=== PATIENT | female | born 1960 | race Caucasian/White ===

== ENCOUNTER 2019-01-11 17:06 | Outpatient (REF) | payer BC, SELFPAY ==
--- NOTE | 2019-01-11 15:30 | PAPFT_PTH ---
PATIENT: Lisandra Duarte LOC: [facility] U#:[id number] AGE/SX: 58/F ROOM: RE01/11/[address]: Marta Mallory MD, DC : 1960 BED: DIS: 01/11/2019 SPEC #: [id number] RECD: 01/11/19 18:22 STATUS: LUCÍA MOSS #: [id number] ANGELO: 01/11/19 15:[address]: Marta Mallory DEPT: [facility], [facility] Cytology RECD BY: Nishi Foote Tissues: 1 - CX/ENDOCX FOR PAP SMEARS Procedures: PAP THIN PREP/UVM Screening HPV DNA PROBE Comments: [id number]
== END 2019-01-11 17:26 ==
LOC: LBN 17:06
PROVIDERS: Visit Provider Family Medicine
DX: Z12.4 Encounter for screening for malignant neoplasm of cervix (principal); Z11.51 Encounter for screening for human papillomavirus (HPV)
CPT/HCPCS: 88142; 87624

== ENCOUNTER 2019-07-19 15:50 | Outpatient (REF) | payer BC, SELFPAY ==
--- NOTE | 2019-07-19 15:24 | SKI_PTH ---
PATIENT: Lisandra Duarte LOC: [facility] U#:[id number] AGE/SX: 58/F ROOM: RE07/19/[address]: Mikhail Degroot DO : 1960 BED: DIS: 07/19/2019 SPEC #: [id number] RECD: 07/19/19 17:58 STATUS: LUCÍA REQ #: [id number] ANGELO: 07/19/19 15:[address]: Mikhail Degroot DEPT: Surgical Specimen RECD BY: Nishi Foote ENTERED: 07/19/19 17:59 SP TYPE: ITZEL NAILS DR: Marta Mallory MD, DC Tissues: 1 - SKIN BIOPSY(SHAVE/PUNCH) Procedures: SKIN LEVEL 4 Comments: [id number]
== END 2019-07-19 16:10 ==
LOC: LBN 15:50
PROVIDERS: PCP Family Medicine; Visit Provider Otolaryngology Otolaryngology/Facial Plastic Surgery
DX: L57.0 Actinic keratosis (principal)
CPT/HCPCS: 88305

== ENCOUNTER 2019-11-01 00:09 | Outpatient (CLI) | payer BC, SELFPAY ==
--- NOTE | 2019-11-01 11:06 | DI.RAD_ITS ---
EXAM: XR CERVICAL SPINE COMP 4-5V INDICATION: neck pain M54.2 CERVICALGIA. COMPARISON: No exams were available for comparison TECHNIQUE: 2D digital imaging was performed. FINDINGS: There is narrowing and spurring at the anterior arch of C1 with the dens. Facet joint degenerative c hanges are seen throughout. There is moderate narrowing of the C 5 6 disc space and small endplate o steophytes. There is some straightening of the normal cervical lordosis secondary to degenerative ch anges. There is no prevertebral soft tissue swelling. There is mild neural foraminal narrowing on t he left at C5-6. IMPRESSION: Degenerative changes greatest at C5-6 with mild left neural foraminal narrowing.
== END 2019-11-01 00:29 ==
PROVIDERS: PCP Family Medicine; Visit Provider Family Medicine
DX: M54.2 Cervicalgia (principal); M47.812 Spondylosis without myelopathy or radiculopathy, cervical region; M50.322 Other cervical disc degeneration at C5-C6 level
CPT/HCPCS: 72050

== ENCOUNTER 2019-11-01 00:14 | Outpatient (CLI) | payer BC, SELFPAY ==
[2019-11-01 12:52] LABS: TSH (W/Ref FT4) 0.02 uIU/mL (0.36-3.74)
[2019-11-01 13:23] LABS: FREE T4 1.46 ng/dL (0.76-1.46)
== END 2019-11-01 00:34 ==
PROVIDERS: PCP Family Medicine; Visit Provider Family Medicine
DX: E03.9 Hypothyroidism, unspecified (principal)
CPT/HCPCS: 36415; 84439; 84443

== ENCOUNTER 2019-12-03 07:52 | Day surgery (SDC) | payer BC, SELFPAY ==
[2019-12-03 08:18] VITALS: BP 111/77; PULSE 80; RESP 18; TEMP 36.6; O2SAT 100
[2019-12-03] MEDS: Lactated Ringers 1,000 ML 80 ML IV (08:35)
--- NOTE | 2019-12-03 09:23 | W.PM.DSUDISC ---
Discharge Plan Disposition Patient Disposition: HOME Condition: Good Discharge Details Reason For Visit: Colonoscopy Attending Provider: Karine Christensen Primary Care Provider: Marta Mallory Home Meds and New Rx's Prescriptions: Continued levothyroxine 100 mcg tablet 100 mcg PO DAILY Qty: 90 RF: 12 ibuprofen 200 MG capsule 600 mg PO Q6H PRN RF: 0 levothyroxine 88 mcg tablet 88 mcg PO DAILY Qty: 90 RF: 4 Discontinued bisacodyl [Dulcolax (bisacodyl)] 5 mg tablet,delayed release (DR/EC) 5 mg PO ONCE Qty: 4 RF: 0 polyethylene glycol 3350 17 gram powder in packet 255 g PO DAILY Qty: 15 RF: 0 Discharge Instructions Additional Instructions: Findings: Your colonoscopy was normal. Follow up: Plan for a screening colonoscopy in 10 years or sooner if symptoms indicate. Please call if you develop: fevers >101.5 Nausea or Vomiting Abdominal pain that is not transient DAY SURGERY UNIT POST COLONOSCOPY INSTRUCTIONS 1. Because there will be medication in your system for the next 24 hours, you may feel a little sleepy. Your coordination will be affected. Therefore: a. Do not drive or operate dangerous equipment for 24 hours. b. Do not drink alcohol beverages for 24 hours (not even beer). c. Plan to go home and rest for the day. 2. Generally there are no restrictions on your activity after a day or so has gone by, but you may feel a bit fatigued for a few days. 3 After you arrive home you may have a light meal and return to a normal diet as you can tolerate it without feeling sick to your stomach. 4. After surgery, you may feel pain or discomfort. This should be only transient, but if it persists please contact your doctor. 5. If there are any questions regarding the findings of your procedure, please feel free to contact your doctor. 6. If you are unable to contact your doctor with a problem, contact the hospital at [phone]. 7. Continue all your regular medications unless directed otherwise. I understand the above instructions and have no questions. Signature of Patient or Responsible Adult Escort Date/Time Name of Responsible Adult Escort Signature of Nurse Date/Time Activity:: Activity as Tolerated Diet:: As Tolerated Discharge Orders Discharge Orders: Discharge Order (Routine); Ordered 12/03/19 Ordered By: Karine Christensen DS: Diagnosis Discharge Diagnosis (1) Normal colonoscopy: Status: Acute
--- NOTE | 2019-12-03 10:30 | COLE_ITS ---
DATE OF PROCEDURE: December 03, 2019 PREOPERATIVE DIAGNOSIS: Screening. POSTOPERATIVE DIAGNOSIS: Normal colon. PROCEDURE: Colonoscopy. SURGEON: Karine Christensen M.D. ANESTHESIA: General. INDICATIONS: This is a 58-year-old woman who presents for her first screening colonoscopy. She is a symptomatic and has no family history of colon cancer. She did have a few days recently with some br ight red bleeding, consistent with internal hemorrhoids. PROCEDURE: She was placed in the left Patino position. Propofol was titrated to sedation. Digital r ectal examination revealed no significant abnormalities. The scope was advanced to the cecum without difficulty. The ileocecal valve and appendiceal orifice were clearly identified. Her prep was exce llent. The scope was slowly withdrawn with no abnormalities seen within the ascending, transverse, d escending, sigmoid colon or rectum, including on retroflex view. She tolerated the procedure well an d was stable to recovery. She will need a screening colonoscopy again in ten years or sooner if symptoms indicate. cc: Marta Mallory M.D.
[2019-12-03 10:40] VITALS: BP 104/66; PULSE 63; RESP 16; TEMP 36.7; O2SAT 99
== END 2019-12-03 11:25 | disposition home or self-care (01) ==
PROVIDERS: PCP Family Medicine; Visit Provider Surgery
PROC: 0DJD8ZZ Inspection of Lower Intestinal Tract, Via Natural or Artificial Opening Endoscopic (ICD-10-PCS; CPT 45378; principal; 2019-12-03 08:15)
DX: Z12.11 Encounter for screening for malignant neoplasm of colon (principal); K62.5 Hemorrhage of anus and rectum
CPT/HCPCS: 45378; J2704

== ENCOUNTER 2020-01-05 01:19 | Outpatient (CLI) | payer BC, SELFPAY ==
--- NOTE | 2020-01-05 16:15 | DI.MAMMO_ITS ---
EXAM: MG MAMMO SCREENING CLINICAL HISTORY: screening Z12.39. TECHNIQUE: Bilateral full field digital CC and MLO mammographic images were obtained with 3D tomosyn thesis and utilizing computer aided detection (CAD). COMPARISON: Available for comparison. FINDINGS: Masses/Architectural Distortion: There is an ovoid density in the upper central right breast seen on the mediolateral oblique view. There is an ovoid density seen in the inferior left breast on the med iolateral oblique view. Microcalcifications: No suspicious pleomorphic-type are seen. Skin Thickening/Nipple Retraction: None. IMPRESSION: 1. Ovoid density seen in the upper central right breast and inferior left breast. 2. These area should be further evaluated with spot compression views. Ultrasound may be indicated a t that time. BI-RADS Cat 0 - Assessment Incomplete: Need additional imaging evaluation Breast Density - Category C - Heterogeneously dense The mammogram demonstrates the patient's breast tissue is dense. Dense breast tissue is very common a nd is not abnormal but dense breast tissue can make it harder to find cancer on a mammogram. Also, de nse breast tissue may increase their breast cancer risk. This information about the result of the [facility] mogram report was provided to the patient to raise their awareness. Use this report when you speak wi th the patient about their risks for breast cancer, which includes their family history. At that time , you may recommend for more screening tests (Ultrasound or MRI) as they might be useful based on the ir risk. A negative radiographic report should not delay biopsy if a dominant or clinically suspicious mass is present. Up to ten percent of cancers are not identified on mammography. A negative report may reinforce clinical impression. Adenosis and dense breasts may obscure an underlying neoplasm. False positive reports average 6 to 10%. Patient will receive a letter notifying them of these results.
== END 2020-01-05 01:39 ==
PROVIDERS: PCP Family Medicine; Visit Provider Family Medicine
DX: Z12.31 Encounter for screening mammogram for malignant neoplasm of breast (principal); R92.8 Other abnormal and inconclusive findings on diagnostic imaging of breast
CPT/HCPCS: 77063; 77067

== ENCOUNTER 2020-01-11 02:07 | Outpatient (CLI) | payer BC, SELFPAY ==
--- NOTE | 2020-01-11 | DI.MAMMO_ITS ---
EXAM: MG MAMMO SCREEN CALL BACK ALIRIO BILATERAL BREAST ULTRASOUND CLINICAL HISTORY: OVOID DENSITY IN UPPER CENTRAL RT BREAST AND INFERIOR LT BREAST, F/U MAMMO TECHNIQUE: Craniocaudal and mediolateral oblique Full Field Digital Mammography views of the bilater al breast with Computer Aided Diagnosis followed by Tomosynthesis and bilateral breast ultrasound. COMPARISON: Available for comparison FINDINGS: Mammography/Tomosynthesis: Masses/Architectural Distortion: None seen. Microcalcifictions: No suspicious pleomorphic-type are seen. Skin Thickening/Nipple Retraction: None. Bilateral breast US: Echotexture: Normal appearance of the glandular tissue. Shadowing: No suspicious foci. Cyst: Bilateral simple cysts are present. Solid lesions: None seen. Ductal dilation: Mild ductal dilatation in the left breast. IMPRESSION: 1. No evidence of malignancy is noted. 2. A six-month follow-up right mammogram is recommended for further evaluation. 3. Yearly mammography of the left breast is recommended. BI-RADS Cat 3 - 6 month - Probably Benign Finding: Recommend follow-up mammography in 6 months Breast Density - Category C - Heterogeneously dense Findings were discussed with the patient on the date of the examination. The mammogram demonstrates the patient's breast tissue is dense. Dense breast tissue is very common a nd is not abnormal but dense breast tissue can make it harder to find cancer on a mammogram. Also, de nse breast tissue may increase their breast cancer risk. This information about the result of the [facility] mogram report was provided to the patient to raise their awareness. Use this report when you speak wi th the patient about their risks for breast cancer, which includes their family history. At that time , you may recommend for more screening tests (Ultrasound or MRI) as they might be useful based on the ir risk. A negative radiographic report should not delay biopsy if a dominant or clinically suspicious mass is present. Up to ten percent of cancers are not identified on mammography. A negative report may reinforce clinical impression. Adenosis and dense breasts may obscure an underlying neoplasm. False positive reports average 6 to 10%. Patient will receive a letter notifying them of these results.
== END 2020-01-11 02:27 ==
PROVIDERS: PCP Family Medicine; Visit Provider Family Medicine
DX: Z12.31 Encounter for screening mammogram for malignant neoplasm of breast (principal); R92.8 Other abnormal and inconclusive findings on diagnostic imaging of breast; N60.01 Solitary cyst of right breast; N60.02 Solitary cyst of left breast; N60.42 Mammary duct ectasia of left breast
CPT/HCPCS: 76642; 77063; 77067

== ENCOUNTER 2020-02-01 15:34 | Outpatient (REF) | payer BC, SELFPAY ==
--- NOTE | 2020-02-01 14:00 | PAPFT_PTH ---
PATIENT: Lisandra Duarte LOC: [facility] U#:[id number] AGE/SX: 59/F ROOM: RE02/01/[address]: Marta Mallory MD, DC : 1960 BED: DIS: 02/01/2020 SPEC #: [id number] RECD: 02/02/20 12:55 STATUS: LUCÍA REGerson #: [id number] ANGELO: 02/01/20 14:[address]: Marta Mallory DEPT: [facility] Cytology RECD BY: Nishi Foote Tissues: 1 - CX/ENDOCX FOR PAP SMEARS Procedures: PAP THIN PREP/UVM Screening HPV DNA PROBE Comments: [id number]
== END 2020-02-01 15:54 ==
LOC: LBN 15:34
PROVIDERS: PCP Family Medicine; Visit Provider Family Medicine
DX: Z12.4 Encounter for screening for malignant neoplasm of cervix (principal); Z11.51 Encounter for screening for human papillomavirus (HPV)
CPT/HCPCS: 88142; 87624

== ENCOUNTER 2020-07-07 16:47 | Emergency (ER) | payer BC, SELFPAY ==
[2020-07-07] VITALS (16 sets, daily range): BP systolic 121–149; BP diastolic 65–80; PULSE 60–90; RESP 12–23; TEMP 36.8; O2SAT 97–100
--- NOTE | 2020-07-07 16:45 | RT.EKG_ITS ---
APPROVED REPORT Exam: Resting ECG Patient Location: E HR:74 bpm ECG Measurements Heart Rate 74 AXIS [place] 150 P 76 QRSd 98 QRS 54 QT 406 T 39 QTc 449 Conclusion Sinus rhythm...normal P axis, V-rate 60- 99 Probable left atrial enlargement...P >50mS, <-0.10mV V1
--- NOTE | 2020-07-07 16:48 | W.ED.GENAD ---
Discharge Plan Disposition Patient Disposition: HOME Condition: Stable Discharge Details Chief Complaint: Chest Pain Clinical Impression: Atypical chest pain, Hypokalemia, Elevated serum free T4 level, Palpitations Primary Care Provider: Marta Mallory ED Provider: Tanya Saez Home Meds and New Rx's Prescriptions: Continued levothyroxine 88 mcg tablet 88 mcg PO DAILY Qty: 90 RF: 12 ibuprofen 200 MG capsule 600 mg PO Q6H PRN RF: 0 Discharge Instructions Instructions: Chest Pain (ED), Hypokalemia (ED) Additional Instructions: Encourage water intake. Please increase the potassium in your diet. We will be in touch with you regarding Holter monitor. If you develop fever/chills, increased pain, difficulty breathing, nausea vomiting or other new/worsening symptoms please seek care urgently once again. Please call primary care on Friday to discuss your thyroid regimen. Please follow-up with your primary care in the next week for reevaluation. Referrals: Marta Mallory MD, [place] [Primary Care Provider] - Discharge Data Discharge Date/Time-TO BE ENTERED AT DEPARTURE: 07/07/20 19:40 Medical Decision Making Patient is a pleasant 59-year-old female presents today with chief complaint of 2 weeks of intermittent chest pressure. She reports the pain began as stabbing worsening pain. Pain always was at times of rest such as when she is watching TV or when she is lying in bed. She does report stress with illness in the past. No shortness of breath associated with this she reports that however recent days, continues to be a at rest that she has symptoms completely has not been stabbing of a discomfort and is been no more change of the breast reported this to present very short lived. States that she can have fluttering which now may not correlate with the discomfort. She denies any fevers or chills. No cough. Did recently go to [place] to take her dog to a emergency vet but does not believe that she was out in the community enough to have been exposed to COVID-19. She denies any personal history of heart disease. Associated with asthma is significantly low a year hypothyroidism. She does report that recently her primary care has been making adjustments to her Synthroid dosing. On exam, patient is resting comfortably. She appears to be in no acute distress with vital signs are stable. Lungs are clear, normal cardiac exam. No chest pain or palpitation. No lower extremity edema or calf tenderness. 2+ distal pulses in all extremities. EKG was obtained and reviewed by Dr. Shay. Patient is in sinus rhythm with no acute ischemic changes noted. At this point, differentials are fairly broad. However, history is not clearly consistent with ACS as there is no exertional component to her discomfort. She denies worsening shortness of breath. She does report that she is been more sedentary than typically. Pulmonary embolism is on the differential, I do find this less likely. She is not tachycardic or hypoxic. Exam and history is not consistent with dissection or AAA. Infectious etiology is in the differential, this seems to be to intermittent without evidence of fevers or chills to be very high in the differential. However, with this in mind I do feel that further evaluation is appropriate FINDINGS: Lungs: Unremarkable. No consolidation. Pleural space: Unremarkable. No pleural effusion. No pneumothorax. Heart/Mediastinum: Unremarkable. No cardiomegaly. Bones/joints: Unremarkable. IMPRESSION: No acute findings. Labs reviewed. No leukocytosis. Stable H&H. Potassium is 3.1 and will replenish this. Her d-dimer is within normal range at 291. Patient's TSH is less than 0.01. Free T4 is 1.5. Discussed these findings with the patient. As the symptoms have been going on for the past week and she is not currently endorsing any chest discomfort, I do not feel that repeat troponin is warranted at this point. However, as she has been having some palpitations, I do feel that it would be appropriate to place her on a Holter monitor. I will see if respiratory therapy is able to do so given the time of day. I did encourage close follow-up with primary care. I did encourage anxiety lytic techniques. She was given strict return precautions. All of her questions and concerns were addressed and she is agreement this plan. Just after discharge was completed, respiratory did come and was able to place a Holter monitor in the department. HPI General Mode of arrival: ambulatory. Date/Time Provider Initiated Documentation: 07/07/20 16:48. Limitations to Documentation: no limitations. Information obtained by: patient and RN notes reviewed. History of Present Illness 59 year old F presents to the emergency department with the chief complaint of chest pressure, described as moderate, with intensity rated at 4. Quality is described as aching, and is localized to the chest. Patient reports no radiation. Patient started experiencing this week(s) (2) and it has been intermittent. No relieving factors improve symptom(s), (does not notice when active) Immoblization worsens symptoms (notices it when laying down, at rest watching TV...) . Patient notes chest pain; denies cough, diaphoresis, fever/chills, loss of appetite, nausea/vomiting, rash, shortness of breath and syncope. Patient did receive the following treatments prior to arrival, none Related Data Home Medications Medication Instructions Recorded Confirmed ibuprofen 600 mg PO Q6H PRN tab-cap 05/30/15 07/07/20 levothyroxine 88 mcg tablet 88 mcg PO DAILY #90 tab-cap 02/01/20 07/07/20 Previous Rx's Medication Instructions Recorded levothyroxine 88 mcg tablet 88 mcg PO DAILY #90 tab-cap 02/01/20 Allergies Allergy/AdvReac Type Severity Reaction Status Date / Time methimazole Allergy Mild Hives Unverified 02/01/20 13:28 caffeine AdvReac Intermediate Tachycardia Unverified 02/01/20 13:28 [From Excedrin Migraine] Review of Systems Constitutional Constitutional: Reports as per HPI, Denies chills, Denies fever(s), Denies headache(s), Denies lethargy and Denies poor appetite Eyes Eyes: Denies change in vision ENT Ears, Nose, Mouth, and Throat: Denies dizziness and Denies headache(s) Cardiovascular Cardiovascular: Reports as per HPI, Reports chest pain, Reports chest pain at rest, Denies chest pain with activity, Denies diaphoresis, Denies syncope, Denies edema, Denies claudication, Denies lightheadedness, Denies radiating jaw, neck or arm pain, Reports palpitations (feels pounding. Other times, feels fluttering. No always associated CP), Denies dyspnea and Denies dyspnea on exertion Respiratory Respiratory: Reports as per HPI, Denies chest congestion, Denies cough, Denies pain on inspiration, Denies pain with cough, Denies dyspnea, Denies dyspnea on exertion and Denies wheezing Gastrointestinal Gastrointestinal: Reports as per HPI, Denies abdominal pain, Denies diarrhea, Denies nausea and Denies vomiting Musculoskeletal Musculoskeletal: Reports as per HPI and Denies back pain Integumentary/Breasts Skin/Breast: Reports as per HPI and Denies rash Neurologic Neurologic: Reports as per HPI, Denies dizziness, Denies syncope and Denies headache(s) Endocrine Endocrine: Reports palpitations (feels pounding. Other times, feels fluttering. No always associated CP) Allergic/Immunologic Allergic/Immunologic: Denies wheezing [facility] Medical History (Updated 07/07/20 @ 18:56 by NAINA Greenberg) Abnormal glandular Papanicolaou smear of vagina (Resolved 10/23/94) conization; normal since DDD (degenerative disc disease), lumbar (Chronic 11/28/15) Graves' disease (Resolved 12/23/11) S/P thyroid ablation, now hypothyroid Hx of migraines (Chronic 12/25/15) Hypothyroidism (Chronic) Surgical History Appendectomy Back Surgery (~12/2015) herniated disc THYROID ABLATION Family History Mother Essential hypertension Hyperlipidemia Father Diabetes Essential hypertension Heart disease Hyperlipidemia Brother , 15 MVA (motor vehicle accident) Maternal Grandfather , age 30? Cancer Paternal Grandfather , age 70 Essential hypertension Heart disease Hyperlipidemia Maternal Grandmother , age 82 Essential hypertension Heart disease Hyperlipidemia Paternal Grandmother , age 98 No problems noted. Son No problems noted. Son No problems noted. Daughter No problems noted. Social History Smoking/Tobacco Use Status: Never Alcohol Intake: never Drug use: Never Substance use type: does not use Caregiver/Support person: No Housing: apartment Communication Needs: None Do you need help understanding health information?: Never Pets and animals: Yes Pets and animals: dog(s) Sexually active: No Do you think of yourself as: straight/heterosexual Current gender identity: female What is your relationship status?: How often do you talk on the phone with friends or family?: once per week How often do you get together with friends or relatives?: three or more times per week How often do you attend oriental orthodox or baptism services?: 4 or more times per year Do you belong to any clubs or organized social groups?: yes Panel score (0-1 are the most socially isolated patients): 3 What type of physical activity do you participate in: other Duration: 15-30 minutes/day Frequency: 1-2 times per week Valerie/Sikhism: [employer] Special valerie needs: No Seatbelt use: always Helmet use: Yes Helmet use: always Drive intox or ride w/[employer] truck driver: No Do you feel safe at home: Yes Do you feel safe in your relationship?: Yes Additional Social history: not in current relationship Exam Const General: cooperative, healthy appearing, comfortable, no acute distress and well developed Nutritional Appearance: average body habitus and well nourished Orientation: alert, awake and oriented x3 HENMT Head: normal to inspection Ears: hearing grossly normal bilaterally Mouth: moist mucous membranes Chest Chest: normal inspection of the chest, normal palpation of entire chest wall and no crepitus Resp Effort & Inspection: normal respiratory effort, able to speak in complete sentences and no respiratory distress Auscultation: clear to auscultation bilaterally, no rales, no rhonchi and no wheezes Cardio Rate: regular rate Rhythm: regular rhythm Heart Sounds: S1 normal and S2 normal GI Inspection: normal to inspection, no edema and non-distended Palpation: soft, no hepatosplenomegaly, not firm, no guarding, not rigid and nontender Auscultation: normal bowel sounds Back/Spine/Pelvis Back: no CVA tenderness Thoracic/Lumbar Spine: thoracic and lumbar spine normal to inspection Skin General skin exam: no rashes or lesions noted Trauma: no lacerations or abrasions Neuro General: patient alert, patient awake and patient oriented x3 Cognition: normal cognition Speech: speech normal Gait: normal gait Extrem General: normal to inspection, capillary refill normal, no pedal edema, no calf tenderness and normal gait Psych Appearance: grossly normal and well kempt Mental Status: mental status grossly normal Speech and Movement: speech and movement normal
--- NOTE | 2020-07-07 17:15 | DI.RAD_ITS ---
EXAM: XR PORTABLE CHEST AP CLINICAL HISTORY: CP TECHNIQUE: 2D digital imaging was performed. COMPARISON: No exams were available for comparison FINDINGS: LUNGS: Clear. No pleural abnormality seen. HEART: Normal. MEDIASTINUM: Normal. OTHER FINDINGS: None. IMPRESSION: No acute pulmonary findings. DATA REPOSITORY: RADIATION DOSE DELIVERED:
[2020-07-07 17:25] LABS: Abs Immature Grans 0.01 10^3/uL (0.0-0.06); Absolute Basophil Count 0.03 10^3/uL (0.0-0.2); Absolute Eosinophil Count 0.09 10^3/uL (0.0-0.7); Absolute Lymphocyte Count 1.63 10^3/uL (1.2-3.4); Absolute Neutrophil Count 3.66 10^3/uL (1.2-6.7); Basophils % 0.5; Eosinophils % 1.5; HCT 38.1 % (36.0-46.0); HGB 13.1 g/dL (11.2-15.7); Immature Grans % 0.2; MCH 30.7 pg (27.0-33.0); MCHC 34.4 % (32.0-36.0); MCV 89.2 fL (80-95); Monocytes % 6.9; Neutrophils % 62.9; Nucleated RBC 0 %; Platelet Count 221 10^3/uL (130-400); RBC 4.27 10^6/uL (3.93-5.22); RDW-SD 39.1 fL; WBC 5.82 10^3/uL (4.4-10.8)
[2020-07-07 17:59] LABS: ALT 29 U/L (14-59); AST 18 U/L (15-37); Alkaline Phosphatase 74 U/L (46-116); Anion Gap 9.2 mmol/L (3-11); BUN 14 mg/dL (7-18); Bilirubin, Total 0.5 mg/dL (0.2-1.0); CO2 27.8 mmol/L (21.0-32.0); CREATININE 0.69 mg/dL (0.55-1.02); Chloride 104 mmol/L (98-107); Glucose 107 mg/dL (74-106); Potassium 3.1 mmol/L (3.5-5.1); Sodium 141 mmol/L (136-145); Total Protein 7.3 g/dL (6.4-8.2)
[2020-07-07 18:00] LABS: TSH (W/Ref FT4) < 0.01 uIU/mL (0.36-3.74); Troponin I < 0.05 ng/mL (<0.06)
--- NOTE | 2020-07-07 18:04 | DI.VRAD_ITS ---
PROCEDURE INFORMATION: Exam: XR Chest, 1 View Exam date and time: 07/07/2020 5:53 PM Age: 59 years old Clinical indication: Chest pain TECHNIQUE: Imaging protocol: XR of the chest Views: 1 view. COMPARISON: No relevant prior studies available. FINDINGS: Lungs: Unremarkable. No consolidation. Pleural space: Unremarkable. No pleural effusion. No pneumothorax. Heart/Mediastinum: Unremarkable. No cardiomegaly. Bones/joints: Unremarkable. IMPRESSION: No acute findings. Dictated and Authenticated by: Shirley Jackson MD. Ordering:PRIYANKA Martínez MD
[2020-07-07 18:10] LABS: D-Dimer 291 ng/mlFEU (<500)
[2020-07-07] MEDS: POTASSIUM CHLORIDE 20 MEQ, POTASSIUM CHLORIDE 10 MEQ 30 MEQ PO (18:41)
== END 2020-07-07 19:40 | disposition home or self-care (01) ==
PROVIDERS: Emergency Provider Physician Assistant; PCP Family Medicine
DX: R07.89 Other chest pain (principal); E87.6 Hypokalemia; R00.2 Palpitations; R94.6 Abnormal results of thyroid function studies; E03.9 Hypothyroidism, unspecified
CPT/HCPCS: 36415; 80053; 93005; 99285; 71045; 83735; 84439; 84443; 84484; 85025; 85379; 93010; 93225

== ENCOUNTER 2020-07-11 01:06 | Outpatient (CLI) | payer BC, SELFPAY ==
--- NOTE | 2020-07-11 06:45 | DI.MAMMO_ITS ---
EXAM: MG MAMMO DIAGNOSTIC UNI CLINICAL HISTORY: 6 mo f/u, F/U ABNL MAMMO,R92.8 TECHNIQUE: Mammograms were interpreted according to the usual protocol including computer analysis w [employer] CAD system, tomosynthesis and C-view imaging. COMPARISON: 2010 through December 2019 FINDINGS: This is a six-month follow-up of the right breast. The right breast is composed of heterogeneously de nse fibroglandular densities, Breast Density category C. No suspicious masses or suspicious microcalcifications are seen. Scattered benign calcifications are noted. Vascular calcifications are also seen. No skin thickening or abnormal axillary lymph nodes are seen. There has been no significant change from prior exams. IMPRESSION: BI-RADS Cat 2 - Benign Findings Bilateral screening should be resumed in 6 months.. Breast Density Category C, heterogeneously dense tissue which decreases the sensitivity of the mammog petar. The mammogram demonstrates the patient's breast tissue is dense. Dense breast tissue is very common a nd is not abnormal but dense breast tissue can make it harder to find cancer on a mammogram. Also, de nse breast tissue may increase breast cancer risk. This information about the result of the mammogram report was provided to the patient to raise their awareness. Use this report when you speak with the patient about their risks for breast cancer, which includes their family history. At that time, you may recommend additional screening tests (Ultrasound or MRI) as they might be useful based on their r isk. A negative radiographic report should not delay biopsy if a dominant or clinically suspicious mass is present. Up to ten percent of cancers are not identified on mammography. A negative report may reinforce clinical impression. Adenosis and dense breasts may obscure an underlying neoplasm. False positive reports average 6 to 10%.
== END 2020-07-11 01:26 ==
PROVIDERS: PCP Family Medicine; Visit Provider Family Medicine
DX: R92.8 Other abnormal and inconclusive findings on diagnostic imaging of breast (principal); R92.2 Inconclusive mammogram; R92.1 Mammographic calcification found on diagnostic imaging of breast
CPT/HCPCS: 77061; 77065; G0279

== ENCOUNTER 2020-07-12 13:13 | Outpatient (CLI) | payer BC, SELFPAY ==
--- NOTE | 2020-07-13 08:40 | W.HOLTRPT ---
Date of service: 07/13/20 Time of Service: 08:40 Holter Monitor Report Referring Provider:: [place] Indications:: Palpitations Holter Monitor Note: 48-hour Holter monitor ordered for indication of palpitations. ?The patient was in normal sinus rhythm for majority recording with an average heart rate of 78 bpm. ?There was one episode of supraventricular tachycardia which lasted 7 total beats. This occurred at 3 AM and was asymptomatic. There were rare PACs. ?There were no episodes of ventricular tachycardia and 13 total single ventricular ectopic beats. ?There were no episodes of atrial fibrillation, no pauses in 3 seconds no evidence of high degree heart block. ?Patient triggered events were associated with sinus rhythm or a single PAC/PVC.
== END 2020-07-12 13:33 ==
PROVIDERS: PCP Family Medicine; Visit Provider Family Medicine
DX: R00.2 Palpitations (principal); I47.1 Supraventricular tachycardia; I49.3 Ventricular premature depolarization; I49.1 Atrial premature depolarization
CPT/HCPCS: 93226

== ENCOUNTER 2020-07-27 01:19 | Outpatient (CLI) | payer BC, SELFPAY ==
--- NOTE | 2020-07-27 08:00 | DI.US_ITS ---
APPROVED REPORT EXAM: Comprehensive 2D, Doppler, and color-flow Echocardiogram Patient Location: Out-Patient Office Support Clerk: An Mccloud RDCS (AE) Indications: Chest pain, palpitations, Dilated Atria Other Information Study Quality: Good Conclusion Normal left ventricular wall thickness and chamber size. Estimated ejection fraction is 65%. There are no segmental wall motion abnormalities Normal right ventricular size and function Normal left atrial size. Normal right atrial size. Structurally normal aortic valve without regurgitation or stenosis Structurally normal mitral valve. Trace mitral regurgitation Normal tricuspid valve, trace to mild tricuspid regurgitation, normal estimated right ventricular sys tolic pressure Normal pulmonic valve, trace physiologic regurgitation Wall motion Left Ventricle The left ventricle is normal size. The left ventricular systolic function is normal. The left ventric ular ejection fraction is within the normal range. There is normal left ventricular wall thickness. T here is normal LV segmental wall motion. There is no ventricular septal defect visualized. LVEF is 65 % Right Ventricle The right ventricle is normal size. The right ventricular systolic function is normal. Atria The left atrium size is normal. The right atrium size is normal. The interatrial septum is intact wit h no evidence for an atrial septal defect. Aortic Valve Aortic valve is trileaflet. There is no aortic valvular stenosis. No aortic regurgitation is present. Mitral Valve The mitral valve is normal in structure. No evidence of mitral valve stenosis. Trace mitral regurgita tion. Tricuspid Valve The tricuspid valve is normal in structure. There is no tricuspid valve stenosis. Trace to mild tricu spid regurgitation. Pulmonic Valve The pulmonary valve is normal in structure. There is no pulmonic valvular stenosis. Trace pulmonic re gurgitation. Great Vessels The aortic root is normal in size. The ascending aorta is normal in size. Aortic arch is normal in ca liber. IVC is normal in size and collapses >50% with inspiration. Pericardium There is no pericardial effusion. 2D Dimensions IVSD d PLAX 0.76 cm F: 0.6-1.0 LV Vol A2C d MOD 77.1 mL LVPW d PLAX 0.77 cm F: 0.6 - 1.0 LV Vol A4C d MOD 86.0 mL LVID d PLAX 4.91 cm F: 3.8 - 5.2 LA vol/ BSA A2C s A-L 18.7 mL/m2 LVDs 3.25 cm F: 2.2 - 3.5 LA vol/ BSA A4C s A-L 29.3 mL/m2 Ao Root d 2.54 cm F: 2.7 - 3.3 LA Vol/ BSA Biplane s A-L 24.6 mL/m2 RA Area A4C 15.04 cm2 LA Area A4C s MOD 17.28 cm2 RA Vol/ BSA A4C s A-L 24.4 mL/m2 LA Area A2C s MOD 13.15 cm2 Ao Asc Diam d 3.32 cm F: 2.3 - 3.1 LV EF A4C MOD 56.1 % LV EF Teichholz 62.0 % LV EF A2C MOD 59.7 % LVEF (Lai's) 56.38 % F: 54 - 74 LV EF Biplane MOD 56.4 % LV Volume 65.17 mL F: 46 - 106 SV 46.33 mL LV Volume Index 38.33 mL/m2 F: 29 - 61 SV Index 27.16 mL/m2 LV Vol Biplane MOD 82.2 mL FS 33.40 % M-Mode TAPSE 2.72 cm (M/F) >1.7 LV Diastology MV E' medial 0.108 (>0.07 m/s) E/A Ratio 0.9 LV E/e MED 6.45 (<14) MV E Vmax 0.69 (0.4-1.3 m/s) MV E' lateral 0.108 (>0.1 m/s) MV A Vmax 0.75 (0.4-1.3 m/s) LV E/e LAT 6.45 (<14) MV E/A Ratio 0.87 MV E/E' medial 6.45 MV E/E' lateral 6.45 Aortic Valve LVOT Area 2.77 cm2 AoV Area Vmax 2.30 cm2 LVOT Vmax 1.14 m/s AoV Area/ BSA (Vmax) 1.35 cm2/m2 LVOT Mean Zeke. 0.78 m/s SHELLEY Mean Zeke. 2.14 cm2 LVOT Peak Grad 5.2 mmHg SHELLEY Mean Zeke. Index 1.26 cm2/m2 LVOT Mean Grad 2.8 mmHg LVOT VTI 0.252 m LVOT Diam s 1.85 cm AoV Vmax 1.38 m/s Velocity Ratio 0.82 AoV Mean Zeke. 1.01 m/s AoV Peak Grad 7.6 mmHg LVOT SV 69.95 mL AoV Mean Grad 4.5 mmHg AoV VTI 0.267 m AoV Area VTI 2.62 cm2 AoV Area/ BSA (VTI) 1.54 cm/m2 Mitral Valve MV DT 199 (160-240 msec) MR Vmax 4.60 m/s MV PHT 58 msec MR VTI 1.693 m MV Area PHT 3.81 cm2 MR Peak Grad 84.5 mmHg MV VTI 0.352 m MR Mean Grad 66.8 mmHg MV Area VTI 1.99 (4.0-6.0 cm2) Pulmonary Valve PV Vmax 0.93 (0.5-1.5 m/s) RVOT Peak Gr. 3.16 mmHg PV Peak Grad 3.4 mmHg RVOT Mean Gr. 1.70 mmHg PV Mean Grad 2.2 mmHg RVOT VTI 0.183 m PV VTI 0.193 m RVOT Vmax 0.89 m/s Tricuspid Valve TR Peak Grad 19.5 mmHg TR Vmax 2.21 m/s RA Pressure 3.00 mmHg RVSP (TR) 22.5 mmHg
== END 2020-07-27 01:39 ==
PROVIDERS: PCP Family Medicine; Visit Provider Family Medicine
DX: R00.2 Palpitations (principal); R07.89 Other chest pain; I07.1 Rheumatic tricuspid insufficiency
CPT/HCPCS: 93306

== ENCOUNTER 2021-02-05 19:35 | Outpatient (REF) | payer BC, SELFPAY ==
[2021-02-05 22:01] LABS: TSH (W/Ref FT4) < 0.01 uIU/mL (0.36-3.74)
[2021-02-05 22:18] LABS: FREE T4 1.39 ng/dL (0.76-1.46)
== END 2021-02-05 19:36 | disposition home or self-care (01) ==
LOC: LBN 19:35
PROVIDERS: PCP Family Medicine; Visit Provider Family Medicine
DX: E03.9 Hypothyroidism, unspecified (principal); Z00.00 Encounter for general adult medical examination without abnormal findings
CPT/HCPCS: 84439; 84443

== ENCOUNTER 2022-03-20 04:54 | Outpatient (CLI) | payer BC, SELFPAY ==
[2022-03-20 17:07] LABS: TSH (W/Ref FT4) 0.02 uIU/mL (0.36-3.74)
[2022-03-20 17:38] LABS: FREE T4 1.31 ng/dL (0.76-1.46)
[2022-03-21 18:34] LABS: T3, Total 139 ng/dL (97-169)
[2022-03-21 19:36] LABS: Thyroglobulin Antibody <15 U/mL (<=60)
== END 2022-03-20 04:55 | disposition home or self-care (01) ==
LOC: LBO 04:55
PROVIDERS: PCP Family Medicine; Visit Provider Family Medicine
DX: E03.9 Hypothyroidism, unspecified (principal); E05.00 Thyrotoxicosis with diffuse goiter without thyrotoxic crisis or storm
CPT/HCPCS: 36415; 84439; 84443; 84480; 86800

== ENCOUNTER → 2022-03-27 00:45 | Outpatient (CLI) | payer BC, SELFPAY ==
--- NOTE | 2022-03-27 16:24 | DI.MAMMO_ITS ---
Exam(s) MAMMO SCREENING EXAM: MAMMO SCREENING CLINICAL HISTORY: screening,z12.39 TECHNIQUE: Mammograms were interpreted according to the usual protocol including computer analysis w [employer] CAD system, tomosynthesis and C-view imaging. COMPARISON: 2011 through 2019 FINDINGS: The breasts are composed of heterogeneously dense fibroglandular densities, Breast Density category C . No suspicious masses or suspicious microcalcifications are seen. Scattered benign calcifications and vascular calcifications are noted. No skin thickening or abnormal axillary lymph nodes are seen. There has been no significant change from prior exams. IMPRESSION: BI-RADS Category 1, Negative mammogram. Yearly screening mammography is recommended. Breast Density Category C, heterogeneously Dense. The mammogram demonstrates the patient's breast tissue is dense. Dense breast tissue is very common a nd is not abnormal but dense breast tissue can make it harder to find cancer on a mammogram. Also, de nse breast tissue may increase breast cancer risk. This information about the result of the mammogram report was provided to the patient to raise their awareness. Use this report when you speak with the patient about their risks for breast cancer, which includes their family history. At that time, you may recommend additional screening tests (Ultrasound or MRI) as they might be useful based on their r isk. A negative radiographic report should not delay biopsy if a dominant or clinically suspicious mass is present. Up to ten percent of cancers are not identified on mammography. A negative report may reinforce clinical impression. Adenosis and dense breasts may obscure an underlying neoplasm. False positive reports average 6 to 10%.
== END ==
PROVIDERS: PCP Family Medicine; Visit Provider Family Medicine
DX: Z12.31 Encounter for screening mammogram for malignant neoplasm of breast (principal)
CPT/HCPCS: 77063; 77067

== ENCOUNTER 2023-01-17 11:24 | Emergency (ER) | payer BC, SELFPAY ==
--- NOTE | 2023-01-17 11:15 | RT.EKG_ITS ---
APPROVED REPORT Exam: Resting ECG Reason for Exam: chest pain Patient Location: E HR:69 bpm ECG Measurements Heart Rate 69 AXIS IL 169 P 73 QRSd 89 QRS 54 QT 384 T 49 QTc 411 Conclusion Sinus rhythm...normal P axis, V-rate 60- 99 Probable left atrial enlargement...P >50mS, <-0.10mV V1 Physician: no stemi, minimal ant/lateral depression and minimal <1mm elevation in v2. unchanged from prior ekg on 07/07/20
[2023-01-17 11:27] VITALS: BP 142/69; PULSE 75; RESP 16; TEMP 36.8; O2SAT 96
[2023-01-17 11:49] VITALS: RESP 18
--- NOTE | 2023-01-17 11:50 | W.ED.GENAD ---
Discharge Plan Disposition Patient Disposition: Home Discharge Details Clinical Impression: Chest pain Primary Care Provider: Marta Mallory ED Provider: Conor Rust Home Meds and New Rx's Prescriptions: Continued levothyroxine 75 mcg tablet 75 mcg PO DAILY Qty: 90 12RF Rx Instructions: take daily except skip Friday Discharge Instructions Instructions: Chest Pain (ED), Acute Pericarditis (ED) Additional Instructions: At this time your work-up has returned and shows no signs of significant heart abnormality. No signs of heart attack, abnormality in your lungs, or other significant problem. Please follow-up closely with your primary care provider. As we discussed together for the next 48 hours please take Tylenol and Motrin. I am concerned that there may be a component of mild pericarditis that could be causing the pain/irritation. If you notice any worsening of your symptoms, or any new symptoms such as vomiting, diarrhea, fever, chills, shortness of breath, chest pain, numbness, weakness, or fainting , please return immediately to the emergency department for reevaluation. Please follow up with your primary care provider as soon as possible for reassessment and reevaluation. As always, it was a pleasure participating in your medical care today. Referrals: Marta Mallory MD, [place] [Primary Care Provider] - Medical Decision Making 62-year-old female with past medical history of Graves' disease, subsequent thyroidectomy/ablation, now on thyroid medications, and a family history positive for cardiac disease from her father, presents today for evaluation of chest pain. Patient states that the pain started on Friday, it was aching in nature, in her central back. And then last night it began to get a bit worse and went from the front of her chest to the back. It was achy in nature. It was improved when she would get up and exert herself. It was also improved when she sat up and leaned forward. She has not taken any NSAIDs. She did contact her PCP who recommended evaluation in the ED. She denies any vomiting or diarrhea. She denies any burning sensation. No other complaints at this time. No other modifying factors. No history of tobacco abuse or cardiac disease personally. Exam demonstrates a well-appearing female. No reproducible chest wall tenderness. No murmur that I can auscultate. Exam is otherwise unremarkable. Radial pulses are equal bilaterally. No evidence of STEMI on EKG. Questionable minimal anterior lateral depression, no elevation aside for slight abnormality noted in V2. We will evaluate for concerning etiologies, including PE or ACS which I feel unlikely. Differential is highest though clinically for pericarditis. 1:03 PM Patient's laboratory work-up has returned, EKG stable, chest x-ray negative for acute process per radiology, D-dimer normal, proBNP normal showing no evidence of heart strain. Lipase normal. Patient remained stable. Symptoms inconsistent with PE, dissection, or STEMI. Bedside ultrasound shows no evidence of pericardial effusion or other significant abnormality. I suspect a component of her symptoms may be mild pericarditis especially secondary to her history of Graves' and the potential for autoimmune component. Her symptoms continue to get better when she sits up and leans forward. Will recommend NSAIDs for the next few days. Recommend close follow-up as an outpatient with her primary care provider. Additionally patient does demonstrate a normal echo in 07/27/2020. Discussed red flags which to return. I have extensively reviewed the treatment plan and discharge instructions with the patient. I have addressed all patient concerns at this time. The patient was made aware of what symptoms to monitor for that would warrant a return to the emergency department. Discussed the plan with the patient, they demonstrate verbal understanding and agreement with our assessment and plan at this time. The documentation in this chart was dictated using [email or web address] dictation software. Please excuse any dictation errors. FINDINGS: HEART: Normal size. Aorta: Not dilated. PULMONARY VASCULATURE: Normal. LUNGS: Clear. PLEURAL SPACE: No pleural effusion or pneumothorax. BONE:Unremarkable for age. IMPRESSION: No acute abnormality. HPI General Date/Time Provider Initiated Documentation: 01/17/23 11:28. HPI Narrative: 62-year-old female with past medical history of Graves' disease, subsequent thyroidectomy/ablation, now on thyroid medications, and a family history positive for cardiac disease from her father, presents today for evaluation of chest pain. Patient states that the pain started on Friday, it was aching in nature, in her central back. And then last night it began to get a bit worse and went from the front of her chest to the back. It was achy in nature. It was improved when she would get up and exert herself. It was also improved when she sat up and leaned forward. She has not taken any NSAIDs. She did contact her PCP who recommended evaluation in the ED. She denies any vomiting or diarrhea. She denies any burning sensation. No other complaints at this time. No other modifying factors. No history of tobacco abuse or cardiac disease personally. Related Data Home Medications Medication Instructions Recorded Confirmed levothyroxine 75 mcg tablet 75 mcg PO DAILY #90 tab-caps 02/11/22 01/17/23 Previous Rx's Medication Instructions Recorded levothyroxine 75 mcg tablet 75 mcg PO DAILY #90 tab-caps 02/11/22 Allergies Allergy/AdvReac Type Severity Reaction Status Date / Time methimazole Allergy Mild Hives Unverified 02/26/22 13:32 caffeine AdvReac Intermediate Tachycardia Unverified 02/26/22 13:32 [From Excedrin Migraine] General Stated Complaint: Chest Pain GUERLINE: 3 Review of Systems All systems reviewed & are unremarkable except as noted in HPI and below PFSH All Active Problems (Updated 01/17/23 @ 12:57 by Conor Rust DO) Chest pain (Acute) COVID-19 (Acute) Onset 08/19/22 Graves disease (Acute) Chest pain (Acute) Normal colonoscopy (Acute) Neoplasm of unspecified nature of bone, soft tissue, and skin (Acute 05/11/18) Annual physical exam (Acute 12/30/17) Osteoarthritis (Chronic) Neck pain (Acute) DDD (degenerative disc disease), lumbar (Chronic 11/28/15) Hx of migraines (Chronic 12/25/15) Hypothyroidism (Chronic) Medical History (Updated 01/17/23 @ 12:57 by Conor Rust DO) Abnormal glandular Papanicolaou smear of vagina (10/23/94) conization; normal since Graves' disease (12/23/11) S/P thyroid ablation, now hypothyroid Surgical History Appendectomy Back Surgery (~12/2015) herniated disc THYROID ABLATION Family History Mother Essential hypertension Hyperlipidemia Father Diabetes Essential hypertension Heart disease Hyperlipidemia Brother , 15 MVA (motor vehicle accident) Maternal Grandfather , age 30? Cancer Paternal Grandfather , age 70 Essential hypertension Heart disease Hyperlipidemia Maternal Grandmother , age 82 Essential hypertension Heart disease Hyperlipidemia Paternal Grandmother , age 98 No problems noted. Son No problems noted. Son No problems noted. Daughter No problems noted. Social History Smoking/Tobacco Use Status: Never Second Hand Exposure: Yes Smoking risk assessment performed?: Yes Alcohol Intake: never Drug use: Never Substance use type: does not use Caregiver/Support person: No Housing: apartment Do you need help understanding health information?: Never Pets and animals: Yes Pets and animals: dog(s) and horse(s) Sexually active: No Do you think of yourself as: straight/heterosexual Current gender identity: female What is your relationship status?: How often do you talk on the phone with friends or family?: once per week How often do you get together with friends or relatives?: three or more times per week How often do you attend yazidi or rastafarian services?: 4 or more times per year Do you belong to any clubs or organized social groups?: yes Panel score (0-1 are the most socially isolated patients): 3 Duration: 30-45 minutes/day Frequency: 3-4 times per week Valerie/Jainism: Druze Special valerie needs: No Seatbelt use: always Helmet use: Yes Helmet use: always Drive intox or ride w/intox day haul or farm charter bus driver: No Do you feel safe at home: Yes Do you feel safe in your relationship?: Yes Additional Social history: not in current relationship Exam Narrative Exam Narrative: 1.Const: Well-nourished, Well-developed, appearing stated age 2.Eyes: PERRL, no conjunctival injection, and symmetrical lids. 3.ENT: Atraumatic external nose and ears. Moist MM. Neck: Symmetric, trachea midline, No thyromegaly. 4.CVS: +S1/S2, No murmurs or gallops. Peripheral pulses 2+ and equal in all extremities. Brisk capillary refill in all extremities. 5.RESP: Unlabored respiratory effort. Clear to auscultation bilaterally. No wheezes rales or rhonchi 6.GI: Soft, Nontender/Nondistended, No hepatosplenomegaly. No guarding or rebound. 7.MSK: Normocephalic/Atraumatic, Extremities w/o deformity or ttp No cyanosis or clubbing, Normal movement of all extremities 8.Skin: Warm, Dry. No rashes or lesions. 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 Sensation grossly intact, no focal neurologic deficits. 10.Psych: (AAO) x3. Appropriate mood and affect Course Vital Signs Vital signs: Vital Signs Temperature 36.8 C 01/17/23 11:27 Pulse 75 01/17/23 11:27 Respiratory Rate 16 01/17/23 11:27 Blood Pressure 142/69 H 01/17/23 11:27 Pulse Oximetry 96 01/17/23 11:27 Temperature 36.8 C 01/17/23 11:27 Temperature Source Oral 01/17/23 11:27 Pulse 75 01/17/23 11:27 Respiratory Rate 18 01/17/23 11:49 Respiratory Effort Normal, Non-Labored 01/17/23 11:49 Respiratory Depth Normal 01/17/23 11:49 Respiratory Pattern Normal 01/17/23 11:49 Blood Pressure 142/69 H 01/17/23 11:27 Blood Pressure Position Supine 01/17/23 11:27 Pulse Oximetry 96 01/17/23 11:27 Oxygen Delivery Method Room Air 01/17/23 11:27 Oxygen Flow Rate 0 01/17/23 11:27 Pain Level 2 01/17/23 11:27 POCUS Exam (ED) Limited Cardiac Exam DATE OF EXAM: 01/17/23 TIME OF EXAM: 12:56 PROVIDER THAT PERFORMED THE STUDY: Conor Rust IS THIS A REPEAT EXAM DURING THIS ENCOUNTER: no REASON FOR EXAM: Chest pain VISUALIZED STRUCTURES: Left atrium, Left ventricle and Right ventricle VIEW OBTAINED: Parasternal long-axis PERTINENT FINDINGS/IMPRESSION: No apparent abnormalities Exam complete
[2023-01-17 12:04] LABS: Abs Immature Grans 0.01 10^3/uL (0.0-0.06); Absolute Basophil Count 0.02 10^3/uL (0.0-0.2); Absolute Eosinophil Count 0.01 10^3/uL (0.0-0.7); Absolute Lymphocyte Count 1.37 10^3/uL (1.2-3.4); Absolute Monocyte Count 0.35 10^3/uL (0.1-0.8); Absolute Neutrophil Count 3.18 10^3/uL (1.2-6.7); Basophils % 0.4; Eosinophils % 0.2; HCT 38.2 % (36.0-46.0); HGB 13.2 g/dL (11.2-15.7); Immature Grans % 0.2; Lymphocytes % 27.7; MCH 31.1 pg (27.0-33.0); MCHC 34.6 % (32.0-36.0); MCV 90 fL (80-95); MPV 9.8 fL (8.0-11.0); Monocytes % 7.1; Neutrophils % 64.4; Platelet Count 219 10^3/uL (130-400); RBC 4.24 10^6/uL (3.93-5.22); RDW-SD 39.8 fL; WBC 4.94 10^3/uL (4.4-10.8)
[2023-01-17 12:22] LABS: PTT Activated 25.1 sec (21.5-31.9)
[2023-01-17 12:28] LABS: ALT 25 U/L (14-59); AST 19 U/L (15-37); Alkaline Phosphatase 72 U/L (46-116); Anion Gap 5.9 mmol/L (3-11); BUN 15 mg/dL (7-18); Bilirubin, Total 0.4 mg/dL (0.2-1.0); CO2 30.1 mmol/L (21.0-32.0); CREATININE 0.7 mg/dL (0.55-1.02); Calcium 9.2 mg/dL (8.5-10.1); Chloride 105 mmol/L (98-107); Estimated GFR 98.95 (mL/min/1.73m2); Glucose 125 mg/dL (74-106); Lipase 25 U/L (16-77); NT-proBNP 72 pg/mL (<300); Potassium 3.3 mmol/L (3.5-5.1); Sodium 141 mmol/L (136-145); Total Protein 7.2 g/dL (6.4-8.2); Troponin I < 50 ng/L (<or=60)
--- NOTE | 2023-01-17 12:31 | DI.RAD_ITS ---
Exam(s) XR CHEST 2V PA LATERAL EXAM: XR CHEST 2V PA LATERAL CLINICAL HISTORY: central chest pain TECHNIQUE: 2D digital imaging was performed. COMPARISON: CR,XR XR PORTABLE CHEST AP from 07/07/2020 FINDINGS: HEART: Normal size. Aorta: Not dilated. PULMONARY VASCULATURE: Normal. LUNGS: Clear. PLEURAL SPACE: No pleural effusion or pneumothorax. BONE:Unremarkable for age. IMPRESSION: No acute abnormality. DATA REPOSITORY: RADIATION DOSE DELIVERED:
[2023-01-17 12:41] LABS: D-Dimer 198 ng/mlFEU (<500)
[2023-01-17 13:03] VITALS: BP 132/87; PULSE 80; RESP 18; O2SAT 98
== END 2023-01-17 13:04 | disposition home or self-care (01) ==
PROVIDERS: Emergency Provider Student in an Organized Health Care Education/Training Program; PCP Family Medicine
DX: R07.9 Chest pain, unspecified (principal)
CPT/HCPCS: 80053; 83690; 93005; 93308; 96374; 99284; 71046; 83880; 84484; 85025; 85379; 85610; 85730; 93010; 99285

== ENCOUNTER 2023-01-24 00:51 | Outpatient (CLI) | payer BC, SELFPAY ==
--- NOTE | 2023-01-24 10:00 | DI.CT_ITS ---
Exam(s) CT CHEST WO EXAM: CT CHEST WO CLINICAL HISTORY: severe chest pressure - neg cardiac w/u, R07.9, Thoracic back pain, M54.6. TECHNIQUE: Multi planar reconstructions were performed. CONTRAST MATERIAL: None COMPARISON: No exams were available for comparison FINDINGS: CHEST: LUNGS: There are mild benign-appearing increased subpleural markings in the anterior basal segment of the left lower lobe. No overlying rib destruction nor pleural effusion. There is a pleural based f ocal density in the posterior aspect of the right lower lobe measuring 7 by 4 millimeters, not associ ated with rib destruction nor pleural effusion. No other focal lung findings. No pleural effusions. No pneumothorax. No significant focal findings in the trachea and mainstem bronchi. MEDIASTINUM: There is no obvious hilar nor mediastinal adenopathy. No supraclavicular adenopathy.No o bvious axillary adenopathy no hiatal hernia. CARDIAC: Heart size is normal. There is no pericardial effusion.Caliber of the thoracic aorta is wit hin normal limits. VISUALIZED UPPER ABDOMEN:No adrenal masses. OSSEOUS: No significant osseous lesions.No evidence of sternal fracture. No rib fractures. No verte bral body fractures.. IMPRESSION: 1. Mild presently benign-appearing findings in both lungs as described above. No pleural effusions n or intrathoracic adenopathy. 2. No significant osseous findings. 3. No obvious hiatal hernia. RADIATION DOSE DELIVERED: 382.11mGy.cm Total DLP DATA REPOSITORY: All CT scans at this facility are submitted to the National Radiology Data Registry (NRDR) Dose Index Registry (DIR) with the [employer] (ACR). RADIATION OPTIMIZATION: All CT scans at this facility use at least one of these dose optimization te chniques: automated exposure control; mA and/or kV adjustment per patient size (includes targeted exa ms where dose is matched to clinical indication); or iterative reconstruction.
--- NOTE | 2023-01-24 13:30 | DI.RAD_ITS ---
Exam(s) XR THORACIC SPINE COMPLETE EXAM: XR THORACIC SPINE COMPLETE CLINICAL HISTORY: chest pain and thoracic pain,m54.6. TECHNIQUE: 2D digital imaging was performed. COMPARISON: CT CT CHEST WO from 01/24/2023 FINDINGS: 3 views No evidence of compression fracture nor listhesis. Mild degenerative disc disease noted. No osseous lesions. No scoliosis. No abnormal widening of the paraspinal lines. Bone density appears normal. IMPRESSION: No significant osseous findings. DATA REPOSITORY: RADIATION DOSE DELIVERED:
--- NOTE | 2023-01-24 14:00 | DI.US_ITS ---
APPROVED REPORT EXAM: Comprehensive 2D, Doppler, and color-flow Echocardiogram Patient Location: Out-Patient Excavating Machine Operator: An Mccloud RDCS (AE) Indications: Chest pain Other Information Study Quality: Adequate Conclusion Normal left-ventricular wall thickness and chamber size. Estimated ejection fraction is 55 to 60%. Wall motion is normal Normal right ventricular size and systolic function Both atria are normal in size There is no structural valvular disease Mild mitral regurgitation Normal estimated right ventricular systolic pressure 20 mmHg Wall motion Left Ventricle The left ventricle is normal size. The left ventricular systolic function is normal. The left ventric ular ejection fraction is within the normal range. There is normal left ventricular wall thickness. T here is normal LV segmental wall motion. There is no ventricular septal defect visualized. LVEF is 59 %. Right Ventricle The right ventricle is normal size. The right ventricular systolic function is normal. The RVSP is 20 .5 mmHg. Atria The left atrium size is normal. The right atrium size is normal. The interatrial septum is intact wit h no evidence for an atrial septal defect. Aortic Valve The aortic valve is normal in structure. There is no aortic valvular stenosis. No aortic regurgitatio n is present. Mitral Valve The mitral valve is normal in structure. No evidence of mitral valve stenosis. Mild mitral regurgita tion. Tricuspid Valve The tricuspid valve is normal in structure. There is no tricuspid valve stenosis. Trace to mild tricu spid regurgitation. Pulmonic Valve The pulmonary valve is normal in structure. There is no pulmonic valvular stenosis. There is no pulmo deny valvular regurgitation. Great Vessels The aortic root is normal in size. Ascending aorta is not well visualized. Aortic arch is normal in c aliber. IVC is normal in size and collapses >50% with inspiration. Pericardium There is no pericardial effusion. 2D Dimensions IVSD d PLAX 0.86 cm F: 0.6-1.0 LV Vol A2C d MOD 75.2 mL LVPW d PLAX 0.86 cm F: 0.6 - 1.0 LV Vol A4C d MOD 97.6 mL LVID d PLAX 4.69 cm F: 3.8 - 5.2 LA vol/ BSA A2C s A-L 20.4 mL/m2 LVDs 3.25 cm F: 2.2 - 3.5 LA vol/ BSA A4C s A-L 29.0 mL/m2 Ao Root d 2.64 cm F: 2.7 - 3.3 LA Vol/ BSA Biplane s A-L 25.3 mL/m2 RA Area A4C 13.51 cm2 LA Area A4C s MOD 17.30 cm2 RA Vol/ BSA A4C s A-L 19.9 mL/m2 LA Area A2C s MOD 13.98 cm2 LV EF Teichholz 58.1 % LV EF A4C MOD 59.4 % LVEF (Lai's) 56.12 % F: 54 - 74 LV EF A2C MOD 58.7 % LV Volume 68.74 mL F: 46 - 106 LV EF Biplane MOD 56.1 % LV Volume Index 39.96 mL/m2 F: 29 - 61 SV 48.78 mL LV Vol Biplane MOD 86.9 mL SV Index 28.38 mL/m2 FS 30.60 % M-Mode TAPSE 2.66 cm (M/F) >1.7 LV Diastology MV E' medial 0.152 (>0.07 m/s) E/A Ratio 0.8 LV E/e MED 4.95 (<14) MV E Vmax 0.76 (0.4-1.3 m/s) MV E' lateral 0.119 (>0.1 m/s) MV A Vmax 0.95 (0.4-1.3 m/s) LV E/e LAT 6.35 (<14) MV E/A Ratio 0.79 MV E/E' medial 4.99 MV E/E' lateral 6.38 Aortic Valve LVOT Area 3.00 cm2 AoV Area Vmax 2.25 cm2 LVOT Vmax 1.21 m/s AoV Area/ BSA (Vmax) 1.31 cm2/m2 LVOT Mean Zeke. 0.76 m/s SHELLEY Mean Zeke. 2.13 cm2 LVOT Peak Grad 5.8 mmHg SHELLEY Mean Zeke. Index 1.24 cm2/m2 LVOT Mean Grad 2.8 mmHg LVOT VTI 0.247 m LVOT Diam s 1.95 cm AoV Vmax 1.61 m/s Velocity Ratio 0.75 AoV Mean Zeke. 1.06 m/s AoV Peak Grad 10.3 mmHg LVOT SV 74.04 mL AoV Mean Grad 5.2 mmHg AoV VTI 0.297 m AoV Area VTI 2.49 cm2 AoV Area/ BSA (VTI) 1.45 cm/m2 Mitral Valve MV DT 256 (160-240 msec) MV PHT 74 msec MV Area PHT 2.97 cm2 MV VTI 0.278 m MV Area VTI 2.66 (4.0-6.0 cm2) Pulmonary Valve PV Vmax 0.98 (0.5-1.5 m/s) RVOT Peak Gr. 2.86 mmHg PV Peak Grad 3.8 mmHg RVOT Mean Gr. 1.40 mmHg PV Mean Grad 2.1 mmHg RVOT VTI 0.182 m PV VTI 0.209 m RVOT Vmax 0.85 m/s Tricuspid Valve TR Peak Grad 17.4 mmHg TR Vmax 2.09 m/s RA Pressure 3.00 mmHg RVSP (TR) 20.5 mmHg
== END 2023-01-24 01:11 ==
PROVIDERS: PCP Family Medicine; Visit Provider Family Medicine
DX: M54.6 Pain in thoracic spine (principal); R07.89 Other chest pain
CPT/HCPCS: 71250; 72072; 93306

== ENCOUNTER 2023-01-28 16:06 | Outpatient (CLI) | payer BC, SELFPAY ==
--- NOTE | 2023-01-28 06:00 | ETT_ITS ---
APPROVED REPORT Exam: Exercise Treadmill Patient Location: Out-Patient Room/Bed: Stress Nurse: Calli Bliss RN Ordering Provider:WHITNEY QUINTERO, Contact Number: [phone] BMI: 22.59 Baseline Rhythm: Sinus Rhythm Indications: Chest pain Medical History Medical History: Grave's disease, hypothyroidism, thyroid ablation, neck pain, DDD Cardiac Medications: Levothyroxine Allergies: Methimazole, caffeine Cardiac Risk Factors: Family hx Previous Cardiac Procedures: None Pretest Chest Pain Characteristics: Baseline chest pain midsternal / Exercise History: Physically active Physical Disabilities: None Lung Sounds: Clear to auscultation Heart Sounds: Regular Stress Test Details Test: Exercise stress testing was performed using a Minh protocol. Rest Stress HR Resting HR Supine: 71 bpm Max Heart Rate (APMHR): 160 bpm Resting HR Standin bpm Target HR (85% APMHR): 136 bpm Max HR Achieved: 179 bpm % of APMHR: 112 Recovery HR: 97 bpm HR response to stress: Normal HR response to stress BP Resting BP Supine: 140/82 mmHg Resting BP Standin/74 mmHg Max BP: 198/90 mmHg Recovery BP: 128/70 mmHg BP response to stress: Normal blood pressure response to stress. ECG Resting ECG: Sinus Rhythm Ectopy: None Stress ECG: Sinus Tachycardia ST Change: No significant ST segment changes noted Arrhythmia: None Recovery ECG: Sinus Rhythm Recovery ST Change: No significant ST segment changes noted Recovery Arrhythmia: Rare PAC Clinical Reason for Termination: Fatigue Stress Symptoms: General Fatigue Exercise duration: 13 min03 sec Highest Stage Reached: Stage 5: 5.0 mph at 18% grade. Exercise capacity: 15 METs Angina Score: None Caldwell Treadmill Score: 11.5 Rate Pressure Product: [id number] Stress ECG Conclusion 1. The resting electrocardiogram was within normal limits 2. Patient exercised on the Minh protocol and completed a workload of 15 METS stopping due to fatigu e 3. Normal heart rate and blood pressure response to exercise. The patient achieved greater than 100% of predicted heart rate for age 4. There was no electrocardiographic evidence of myocardial ischemia 5. There were no significant dysrhythmias Caldwell Treadmill Score is 11.5 which is Low risk. Stress Test Summary STAGE Time (mins) Speed (mph) Grade (%) HR BP SpO2 SYMPTOMS METS Supine 71 140/82 Standing 75 118/74 99% Baseline chest pain midsternal 5/10 1 3 1.7 10 113 120/82 96% 4.5 2 6 2.5 12 129 130/80 93% 7 3 9 3.4 14 140 150/84 96% 10 4 12 4.2 16 164 90% 13 5 15 5.0 18 176 88% 15 1 min recovery 136 198/80 97% 3 min recovery 101 172/80 99% 6 min recovery 97 128/70 99% Patient reported baseline chest pain midsternal 5/10. Patient denied changes to this chest pain durin g stress test. Tolerated testing well.
== END 2023-01-28 16:26 ==
LOC: DI 16:08
PROVIDERS: PCP Family Medicine; Visit Provider Family Medicine
DX: R07.9 Chest pain, unspecified (principal)
CPT/HCPCS: 93017

== ENCOUNTER 2023-02-03 11:42 | Outpatient (CLI) | payer BC, SELFPAY ==
--- NOTE | 2023-02-03 10:00 | DI.RAD_ITS ---
Exam(s) XR HAND LT COMPLETE EXAM: XR HAND LT COMPLETE CLINICAL HISTORY: dog lease injury M79.642 PAIN LEFT HAND T14.8XXA INJURY. TECHNIQUE: 2D digital imaging was performed of the left hand. Three views were obtained. AP, later al and oblique views were obtained. COMPARISON: No exams were available for comparison FINDINGS: BONES: There is an acute comminuted fracture of the distal shaft of the left 5th metacarpal. There i s volar angulation of the fracture. Fracture does not appear to extend into the MCP joint. No bony destructive lesion is seen. JOINTS: No dislocation present. SOFT TISSUE: There is soft tissue swelling adjacent to the fracture site. IMPRESSION: Comminuted angulated fracture of the left 5th metacarpal bone as described above. DATA REPOSITORY: RADIATION DOSE DELIVERED:
== END 2023-02-03 12:02 ==
LOC: DI 11:42
PROVIDERS: PCP Family Medicine; Visit Provider Family Medicine
DX: M79.642 Pain in left hand (principal); S62.327A Displaced fracture of shaft of fifth metacarpal bone, left hand, initial encounter for closed fracture; X58.XXXA Exposure to other specified factors, initial encounter; M79.89 Other specified soft tissue disorders
CPT/HCPCS: 73130

== ENCOUNTER 2023-04-03 16:50 | Outpatient (REF) | payer BC, SELFPAY ==
--- NOTE | 2023-04-03 13:30 | PAPFT_PTH ---
PATIENT: Lisandra Duarte LOC: [facility]#:[id number] AGE/SX: 62/F ROOM: RE04/03/[address]: Marta Mallory MD, DC : 1960 BED: DIS: 04/03/2023 SPEC #: [id number] RECD: 04/04/23 15:44 STATUS: LUCÍA REQ #: [id number] ANGELO: 04/03/23 13:[address]: Marta Mallory DEPT: [facility] Cytology RECD BY: Nishi Foote Tissues: 1 - CX/ENDOCX FOR PAP SMEARS Procedures: PAP THIN PREP/UVM Screening HPV DNA PROBE Comments: [id number] (HPV 16 & 18/45)
--- OUTSIDE RECORDS SUMMARY | 2023-04-03 16:52 | XMS_ITS | Continuity of Care Document ---
Author Name Unknown Organization [facility] Address [address] [place] [address] Care Team Providers Care Senior Software Development Engineer Name Role Phone Marta Mallory Primary Care Physician [phone] Encounter [facility] Date(s): 02/19/23 - 02/19/[address] [address] Discharge Disposition: Home or Self Care Attending Physician: Marcelo Wolff MD Admitting Physician: Mareclo Wolff MD Referring Physician: Marcelo Wolff MD Allergies, Adverse Reactions, Alerts Substance Reaction Severity Status Excedrin Migraine 1, 2 Moderate Activ e methIMAzole Hives Mild Active 1Caffine from the Excedrine 2Tachycardia Assessment and Plan Future Appointments Functional Status 02/19/23 Family Member Travel History No recent t ravel Recent Travel History No recent travel Other exposure to Infectious Disease Non e Medications !-[place] 5 mg-325 mg oral tablet 1 tab, Oral, every 6 hr, PRN as needed for pain, # 7 tab, 0 Refill(s), Pharmacy: [id number], 170, cm, 02/19/23 10:55:00 EDT, Height/Length Dosing, 63.1, kg, 02/19/23 10:55:00 EDT, Weight Dosing Start Date: 02/19/23 Status: Ordered IBU 400 mg oral tablet 0 Refill(s) Start Date: 02/17/23 Status: Ordered levothyroxine 75 mcg (0.075 mg) oral tablet 0 Refill(s) Start Date: 02/17/23 Status: Ordered Tylenol Extra Strength 500 mg oral tablet 0 Refill(s) Start Date: 02/17/23 Status: Ordered Problem List Condition Confirmation Course Effective Dates Status H ealth Status Informant Chest pain Confirmed Active DDD (degenerative disc disease), lumbar Confirmed Active Left hand fracture Confirmed Active Graves' disease Confirmed Active Hypothyroidism Confirmed Active Migraines Confirmed Active Neoplasm of unspecified behavior of bone, soft tissue, and skin Confirmed Active Osteoarthritis Confirmed Active Thoracic back pain Confirmed Active Procedures Procedure Date Related Diagnosis Body Site Status Pinning 1 02/18/23 Completed Appendectomy Completed Back 2 Completed Thyroid nodule 3 Complete d 1Left 5th MC fx with rotation, PPR done. 2Herniated Disc 12/2015 3Thyroid Ablation Vital Signs Most recent to oldest [Reference Range]: 1 2 3 Temperature Oral [35.8-37.3 Deg C] 37 Deg C (02/19/23 10:30 AM) Temperature Temporal Artery [36-38 Deg C] 36.9 Deg C (02/19/23 1:00 PM) 36.9 Deg C (02/19/23 12:40 PM) Temperature Temporal Artery (DegF) [97.3-100 Deg F] 98.42 Deg F (02/19/23 1:00 PM) 98.42 Deg F (02/19/23 12:40 PM) Peripheral Pulse Rate [60-100 bpm] 71 bpm (02/19/23 2:30 PM) 59 bpm *LOW* (02/19/23 2:15 PM) 54 bpm *LOW* (02/19/23 2:00 PM) Heart Rate Monitored [60-100 bpm] 70 bpm (02/19/23 2:30 PM) 59 bpm *LOW* (02/19/23 2:15 PM) 56 bpm *LOW* (02/19/23 2:00 PM) Respiratory Rate [12-24 br/min] 15 br/min (02/19/23 2:30 PM) 13 br/min (02/19/23 2:15 PM) 9 br/min *LOW* (02/19/23 2:00 PM) Blood Pressure [90-140/60-90 mmHg] 119/85mmHg (02/19/23 2:30 PM) 118/78mmHg (02/19/23 2:15 PM) 113/75mmHg (02/19/23 2:00 PM) Mean Arterial Pressure, Cuff [65-140 mmHg] 96 mmHg (02/19/23 2:30 PM) 91 mmHg (02/19/23 2:15 PM) 88 mmHg (02/19/23 2:00 PM) Weight 63.100 kg (02/19/23 10:30 AM) Weight Dosing 63.100 kg (02/19/23 10:30 AM) Height 170.000 cm (02/19/23 10:30 AM) Height/Length Dosing 170.000 cm (02/19/23 10:30 AM) Body Mass Index 21.830 kg/m2 (02/19/23 10:30 AM) Social History Social History Type Response Tobacco Never tobacco user T obacco Use:. Sex Implantable Device List Procedure Provider Procedure Date Device Type Site Percutaneous skeletal fixation of unstable phalangeal shaft fracture, proximal or middle phalanx, finger or thumb, with manipulation, Marcelo Adler MD 02/19/23 Non Biological Finger Pinky L Device Identifier Serial Number Lot or Batch Number Manufacturing Date Expiration Date Distinct Identification Code MRI Safety Implantable Status Assigning Authority Unknown Unknown Unknown Unknown 01/14/25 Unknown Unknown Active Unk nown Discharge instructions * Bruna Garcia: PERFORM Event Display: Discharge Instructions Authored Date: [id number] JAMES RUGGIERO :1960 Age:62 years Sex:Female Visit Date:02/19/2023 Primary Care Physician: Marta Mallory MD Hospital Discharge Instructions We would like to thank you for allowing us to assist you with your healthcare needs. The following includes patient education materials and information regarding your injury/illness. Your Next Steps Instructions From Your Care Team Orthopedic Surgery Discharge Instructions keep splint clean and dry until follow up in ortho office sling as needed ?? Pain Control ?Take your pain relief medication when discomfort first begins. ?Can use stool softener while taking the narcotic to avoid problems with constipation. ?It is okay to start [id number] Naproxen or Ibuprofen??immediately ?? Call your doctor if you: ?Develop a fever over 101 degrees. ?Have increased redness, warmth, discharge, swelling, or hardness around the operative site. ?Circulation changes such as tingling, numbness or your fingers/toes appear blue or white. ?Your pain is not adequately controlled, despite taking your pain medication routinely. ?? On the day of surgery, or while taking narcotic pain medication: No driving, operating power equipment,?? drinking alcohol,?? or taking mood altering drugs? Apply warm, moist compress to IV site if sore or red, for 20 minutes, 4 times a day, for 2-3 days.?? Call your doctor if IV site soreness or redness persists. In the event of any problems after surgery, contact your doctor or the Emergency Room @ . Ortho Office: [phone]?? Scheduled Future Appointments Friday 3:00 PM EDT ?? Follow up at [facility] with NAINA Alberto Medications What How Much When Instructions Next Dose New HYDROcodone-acetaminophen (!-[place] 5 mg-325 mg oral tablet) 1 tab Oral (given by mouth) Every 6 hours as needed for as needed for pain Pickup at [facility] Unchanged acetaminophen (Tylenol Extra Strength 500 mg oral tablet) Unchanged ibuprofen (IBU 400 mg oral tablet) Unchanged levothyroxine (levothyroxine 75 mcg (0.075 mg) oral tablet) Pharmacy Information [id number]: [address] [place], [place] [id number] [phone] Devices Implanted/Removed This Visit Notice: You have devices implanted this visit that may not be MRI compatible. Implanted Pinning Percutaneous Finger Finger Pinky L ???WIRE TROCAR PNT DBL-ENDED 4X1.1MM (2), 02/19/2023 Patient Name:JAMES RUGGIERO I have received this information and my questions have been answered. Patient/Switchboard Operator Supervisor Name: Patient/Switchboard Operator Supervisor Signature: Relationship to Patient: Witness Name/Signature: Date: Electronically Signed on: 02/19/2023 13:48 EDTSigned by:SHAHANA Note * Raquel Gaona: PERFORM Event Display: Extended Care Note Authored Date: [id number] History and physical note * Marcelo Wolff MD: PERFORM Event Display: History and Physical Authored Date: [id number] JAMES RUGGIERO :1960 Age:62 years Sex:Female Visit Date:02/19/2023 Primary Care Physician: Marta Mallory MD History of Present Illness Pleasant female about 2 weeks status post??left fifth metacarpal fracture from dog related injury.?? Noted some??rotational deformity and malalignment on x-ray. Review of Systems Constitutional:?No??fevers,?No??chills,?No??sweats Eye:?No??recent visual problems ENT:?No??ear pain,?No??nasal congestion,?No??sore throat Respiratory:?No??shortness of breath,?No??cough Cardiovascular:?No??Chest pain,?No??palpitations,?No??syncope Gastrointestinal:?Nonausea,?No??vomiting,?No??diarrhea Genitourinary:?No??hematuria Soren/Lymph:?No??bruising tendency,?No??swollen lymph glands Endocrine:?No??excessive thirst,??No??excessive hunger Musculoskeletal:??No??back pain,??No??neck pain,??No??joint pain,??No??muscle pain,??No??decreased range of motion Integumentary:?No??rash,?No??pruritus,?No??abrasions Neurologic: Alert & oriented X 4 Psychiatric:?No??anxiety,?No??depression Physical Exam Vitals & Measurements T:??37?C ??(Oral)?? HR:??68??(Monitored)?? RR:??18?? BP:??134/86?? SpO2:??100%?? HT:??170.000??cm?? WT:??63.100??kg?? BMI:??21.830?? O2 Therapy:??Room air?? Well-nourished well-developed acute distress alert and oriented appearing stated age. ??Has normal??elbow wrist range of motion hand range of motion limited by splint. ??No open wounds signs of erythema or infection normal neurovascular status distally. Assessment/Plan Ordered: XR Finger(s) 2+ Views Left, 02/19/23 11:58:00 EDT, Routine, Reason: intraop, Transport Mode: Stretcher, Exam to be performed outside organization? Fifth metacarpal fracture with mild rotational deformity and malalignment plan??operative closed reduction percutaneous pinning. Problem List/Past Medical History Ongoing Chest pain DDD (degenerative disc disease), lumbar Graves' disease Hypothyroidism Left hand fracture Migraines Neoplasm of unspecified behavior of bone, soft tissue, and skin Osteoarthritis Thoracic back pain Historical No qualifying data Procedure/Surgical History ???Appendectomy???Back???Thyroid nodule Medications Inpatient ceFAZolin, 2 g, IV Push, Once Dextrose 5% in Lactated Ringers Injection 1,000 mL, 1000 mL, IV droperidol, 0.625 mg= 0.25 mL, Slow IV Push, Once, PRN fentaNYL, 25 mcg= 0.5 mL, IV Push, every 5 min, PRN Home IBU 400 mg oral tablet levothyroxine 75 mcg (0.075 mg) oral tablet Tylenol Extra Strength 500 mg oral tablet Allergies Excedrin Migraine methIMAzole??(Hives) Social History Alcohol Never Electronic Cigarette/Vaping Electronic Cigarette Use: Never. Substance Use Never Tobacco Never tobacco user Tobacco Use:. Electronically Signed on 02/19/23 12:42 PM Debbie [facility] Patient Care team information Care Team Personnel Name: Marta Mallory MD Position: No Access Member Role: Primary Care Physician Address: Address: [facility] [address] [place] [address]- Care Team Related Persons Name: KEVIN LOVE OR JESÚS
--- OUTSIDE RECORDS SUMMARY | 2023-04-03 16:52 | XMS_ITS | Continuity of Care Document ---
Author Name Unknown Organization [facility] Address [address] [place] [address] Care Team Providers Care Senior Analyst Name Role Phone INGRID WALLER,DC, WHITNEY Oliver Primary Care Physician Encounter [facility] NBR [id number] Date(s): 02/14/23 - 02/14/[address] [address]- Discharge Disposition: Home or Self Care Attending Physician: Afia Benoit APRN Admitting Physician: Afia Benoit APRN Allergies, Adverse Reactions, Alerts Substance Reaction Severity Status acetaminophen tachycardia Unknown Active aspirin tachycardia Unknown Active caffeine tachycardia Unknown Active methIMAzole Wheal Moderate Active Medications ibuprofen 400 mg oral tablet 400 mg = 1 tab, Oral, every 4 hr, PRN as needed for pain, # 60 tab, 0 Refill(s) Start Date: 02/06/23 Status: Ordered levothyroxine 75 mcg =, Oral, Daily, 0 Refill(s) Start Date: 02/06/23 Status: Ordered Tylenol Extra Strength 500 mg oral tablet 1,000 mg = 2 tab, Oral, every 6 hr, PRN as needed for pain, 0 Refill(s) Start Date: 02/06/23 Status: Ordered Procedures Procedure Date Related Diagnosis Body Site Status Cervical discectomy 2018 Compl eted History of cervical conization 1994 Completed Appendectomy 1989 Completed Results Radiology Reports * Exam Date Time Procedure Performing Provider Status 02/14/23 11:43 AM XR Hand Complete 3+ Views Left Arely Holm; Fer (Verified) Notes: (XR Hand Complete 3+ Views Left) Reason For Exam: Left hand fracture follow up XR Hand Complete 3+ Views Left EXAM DESCRIPTION: XR Hand Complete 3+ Views Left 02/14/2023 INDICATION: LEFT HAND FRACTURE FOLLOW UP COMPARISON: None IMPRESSION: Comminuted, displaced traumatic fracture involving the distal aspect of the 5th metacarpal with mild angulation deformity. No additional fracture with no dislocation MCP and IP joint spaces are relatively well maintained without significant arthritic changes. Small periarticular soft tissue calcifications are noted involving 2nd and 5th DIP joints suggesting sequela of old injury No regional radiopaque soft tissue foreign body. JOB #: [id number] Final Signed by: Marcelo Leos MD Signed (Electronic Signature): 02/14/2023 12:15 pm Social History Social History Type Response Tobacco Never tobacco user T obacco Use:. Sex Female XR Hand - left GE 3 Views * Marcelo Leos MD: VERIFY, VERIFY Event Display: Report EXAM DESCRIPTION: XR Hand Complete 3+ Views Left 02/14/2023 INDICATION: LEFT HAND FRACTURE FOLLOW UP COMPARISON: None IMPRESSION: Comminuted, displaced traumatic fracture involving the distal aspect of the 5th metacarpal with mild angulation deformity. No additional fracture with no dislocation MCP and IP joint spaces are relatively well maintained without significant arthritic changes. Small periarticular soft tissue calcifications are noted involving 2nd and 5th DIP joints suggesting sequela of old injury No regional radiopaque soft tissue foreign body. JOB #: [id number] Final Signed by: Marcelo Leos MD Signed (Electronic Signature): 02/14/2023 12:15 pm Patient Care team information Care Team Personnel Name: INGRID WALLER,TONY, WHITNEY Oliver Position: No Access Member Role: Primary Care Physician Address: Address: [id number] [place] [address] Care Team Related Persons Name: JAZMIN LOVE Address: Home [address] [place], [place] [id number] [facility] Name: JAZMIN LOVE Address: Home [address] [place], [place] [phone] [facility] Name: JESÚS LOVE Address: Home [address] [place], [place] [id number] [facility]
--- OUTSIDE RECORDS SUMMARY | 2023-04-03 16:52 | XMS_ITS | Continuity of Care Document ---
Author Name Unknown Organization [facility] Address [address] [place] [address] [facility] [id number] Date(s): 02/05/23 - 02/05/23 [facility] [address] [place] [address]- Assessment and Plan Future Appointments
--- OUTSIDE RECORDS SUMMARY | 2023-04-03 16:52 | XMS_ITS | Continuity of Care Document ---
Author Name Unknown Organization [facility] Ambulatory Clinics Address [address] [place] [address] Care Team Providers Care Oil Well Service Operator Name Role Phone Unavailable, Physician Primary Care Physician Un available Encounter [facility] NBR [id number] Date(s): 02/06/23 - 02/06/23 [facility] Ambulatory Clinics [address], [place] [address] Encounter Diagnosis Closed fracture of fifth metacarpal bone of left hand with routine healing (Discharge Diagnosis) - 02/06/23 Discharge Disposition: Home or Self Care Attending Physician: Afia Benoit APRN Allergies, Adverse Reactions, Alerts Substance Reaction Severity Status acetaminophen tachycardia Unknown Active aspirin tachycardia Unknown Active caffeine tachycardia Unknown Active methIMAzole Wheal Moderate Active Assessment and Plan Future Appointments Functional Status 02/06/23 Other exposure to Infectious Disease Non e Medications ibuprofen 400 mg oral tablet 400 [...] cervical conization 1994 Completed Appendectomy 1989 Completed Vital Signs Most recent to oldest [Reference Range]: 1 Peripheral Pulse Rate [60-100 bpm] 73 bp m (02/06/23 12:02 PM) Blood Pressure [90-140/60-90 mmHg] 122/7 8mmHg (02/06/23 12:02 PM) Weight 63.50 kg (02/06/23 12:02 PM) Weight Measured (lbs) 139.993 lb (02/06/23 12:02 PM) Height 170.18 cm (02/06/23 12:02 PM) Height/Length Measured (inches) 67 inch (02/06/23 12:02 PM) BSA Measured 1.73 m2 (02/06/23 12:02 PM) Body Mass Index 21.93 kg/m2 (02/06/23 12:02 PM) Social History Social History Type Response Tobacco Never tobacco user T obacco Use:. Sex Physician Outpatient Note * Afia Benoit, PEDIATRIC HOSPITALIST: PERFORM Event Display: Office Clinic Note Physician Authored Date: [id number] DEYSI RUGGIERO :1960 Age:62 years Sex:Female Visit Date:02/06/2023 Chief Complaint Left Hand Fracture History of Present Illness Deysi is a very pleasant 62 year old female who is 5 days s/p hand injury while walking her dog.The dog pulled and her hand was jammed into a wall. That same day she was able to see here PCP and was confirmed radiographically with a 5th metacarpal fracture. She was not given a splint however she has been doing her best to keep the hand in a position of comfort and taking Tylenol and ibuprofensparingly. Ice and elevation have also been utilized. She denies any further injuries since this event.?? Review of Systems Constitutional:?No??fevers,?No??chills,?No??sweats Respiratory:?No??shortness of breath,?No??cough Cardiovascular:?No??Chest pain,?No??palpitations,?No??syncope Gastrointestinal:?Nonausea,?No??vomiting,?No??diarrhea Soren/Lymph:?No??bruising tendency,?No??swollen lymph glands Musculoskeletal:??No??back pain,??No??neck pain,??Positive for??joint pain,??No??muscle pain,??Positive for??decreased range of motion Integumentary:?No??rash,?No??pruritus,?No??abrasions Neurologic: Alert & oriented X 4 Physical Exam Vitals & Measurements HR:??73??(Peripheral)?? BP:??122/78?? SpO2:??98%?? HT:??170.18??cm?? WT:??63.50??kg?? BMI:??21.93?? Pain Score:??4?? BSA:??1.73?? The patient is well dressed, well groomed and appearing stated age. Examination of the left hand and wrist reveal moderate edema dorsally and mild edema volarly to the hand. There is ecchymosis to the dorsal and volar aspects of the hand extending to the 5th and 4th fingers. There is full ROM of the wrist. Thumb opposition is intact??to fingers 2-4. There is decreased ROM to the 5th MCP, PIP and DIP joints. The patient is not able to make a composite fist r/t pain and swelling. There is no obvious malrotation to any digit. The LUE is neurovascularly intact including a 2+ radial pulse and brisk capillary refill distal. Sensation is intact. Assessment/Plan Closed fracture of fifth metacarpal bone of left hand with routine healing??L07.223Q Deysi is a very pleasant 62 year old female who sustained a left 5th metacarpal fracture while walking her dog 5 days ago. She states her pain and swelling have greatly improved since the injury where she received initial treatment from her PCP. We discussed today both non operative and operative treatment with the advantages/disadvantages to both in regards to function and cosmetics. Images were utilized for better understanding. Deysi opts for conservative, nonoperative treatment which is reasonable to the lack of extreme angulation or displacement of the fracture. OT will fashion an ulnar gutter splint today and she will wear this at all times. We will see her in the office again next week for another set of xrays and to better assess rotation of digits as edema dissipates. She is encouraged to call the office at any time with any questions or needs. Referral Orders Referral Management, Medical Service: RM Occupational Therapy, Reason: Ulnar gutter splint with intrinsic plus on the LEFT. 5th metacarpal fracture., Type: Evaluate and Treat, Refer To: Provider Not Specified, [facility], --., Start: 02/06/23 Problem List/Past Medical History Ongoing No qualifying data Historical No qualifying data Procedure/Surgical History ???Cervical discectomy (2017)???History of cervical conization (1994)???Appendectomy (1989) Medications ibuprofen 400 mg oral tablet, 400 mg= 1 tab, Oral, every 4 hr, PRN levothyroxine, 75 mcg, Oral, Daily Tylenol Extra Strength 500 mg oral tablet, 1000 mg= 2 tab, Oral, every 6 hr, PRN Allergies No active allergies Social History Electronic Cigarette/Vaping Electronic Cigarette Use: Never. Exercise Tobacco Never tobacco user Tobacco Use:. Diagnostic Results Diagnostic Study Interpretation: Images from 02/03/23 are personally reviewed on the [facility] system to reveal a traumatic, comminuted, angulated fracture to the distal 3rd of the 5th metacarpal. ?? Electronically Signed on 02/06/23 01:15 PM Afia Benoit APRN Patient Care team information Care Team Personnel Name: Unavailable, Physician Position: No Access Member Role: Primary Care Physician Care Team Related Persons Name: JAZMIN LOVE Address: Home [address], [place] [id number] [facility] Name: JESÚS LOVE Address: Home [address], [place] [id number] [facility]
--- OUTSIDE RECORDS SUMMARY | 2023-04-03 16:52 | XMS_ITS | Continuity of Care Document ---
Author Name Unknown Organization [facility] Ambulatory Clinics Address [address] [place] [address] Care Team Providers Care Optical Instrument Specialist Name Role Phone INGRID WALLER,DC, WHITNEY Oliver Primary Care Physician Encounter [facility] NBR [id number] Date(s): 02/14/23 - 02/14/23 [facility] Ambulatory Clinics [address] [place], [place] [address] Encounter Diagnosis Closed fracture of fifth metacarpal bone of left hand with routine healing (Discharge Diagnosis) - 02/14/23 Discharge Disposition: Home or Self Care Attending Physician: Afia Benoit APRN Allergies, Adverse Reactions, Alerts Substance Reaction Severity Status acetaminophen tachycardia Unknown Active aspirin tachycardia Unknown Active caffeine tachycardia Unknown Active methIMAzole Wheal Moderate Active Functional Status 02/14/23 Other exposure to Infectious Disease Non e [...] Pulse Rate [60-100 bpm] 73 bp m (02/14/23 12:26 PM) Blood Pressure [90-140/60-90 mmHg] 108/6 4mmHg (02/14/23 12:26 PM) Social History Social History Type Response Tobacco Never tobacco user T obacco Use:. Sex Female Physician Outpatient Note * Afia Benoit, CHILD NUTRITION DIRECTOR: PERFORM Event Display: Office Clinic Note Physician Authored Date: [id number] DEYSI RUGGIERO :1960 Age:62 years Sex:Female Visit Date:02/14/2023 Primary Care Physician: INGRID WALLER,TONY, WHITNEY Oliver Chief Complaint Left hand fracture f/u History of Present Illness Deysi presents today for reevaluation of left 5th metacarpal fracture. She is now 11 days s/p injury. Since last evaluation she has been wearing the ulnar gutter splint at all times and has noticed a significant decrease in pain and swelling. She continues to intermittently take OTC pain relievers. Denies further injuries. Review of Systems Constitutional:?No??fevers,?No??chills,?No??sweats Respiratory:?No??shortness of breath,?No??cough Cardiovascular:?No??Chest pain,?No??palpitations,?No??syncope Gastrointestinal:?Nonausea,?No??vomiting,?No??diarrhea Soren/Lymph:?No??bruising tendency,?No??swollen lymph glands Musculoskeletal:??No??back pain,??No??neck pain,??Positive for??joint pain,??No??muscle pain,??Positive for??decreased range of motion Integumentary:?No??rash,?No??pruritus,?No??abrasions Neurologic: Alert & oriented X 4 Physical Exam Vitals & Measurements HR:??73??(Peripheral)?? BP:??108/64?? SpO2:??98%?? Pain Score:??3?? The patient is well dressed, well groomed and appearing stated age in NAD. Examination of the left hand and wrist reveal minimal edema dorsally. There is ecchymosis in various stages of healing to the dorsal and palmar aspect of hand. There is full ROM of the wrist. The 5th finger is ulnarly deviated with noted malrotation when the patient attempts to make a composite fist. Sensation is intact distally with a brisk capillary refill. Assessment/Plan 1.??Closed fracture of fifth metacarpal bone of left hand with routine healing??S62.307D Deysi presents for re-evaluation of left 5th metacarpal fracture evaluation. On today's evaluation there is much less edema and ROM is better assessed. She does have ulnar deviation of her small finger with a malrotation when attempting to make a fist. She now opts for surgical treatment. The risks and benefits of both percutaneous pinning and ORIF are discussed and she verbalizes understanding. The plan will be for this to be surgically fixed by Dr. Lewis at [facility] in [place]. The patient is called with this update and information is sent. She is again encouraged to call our officeat any time with questions or needs. Problem List/Past Medical History Ongoing No qualifying data Historical No qualifying data Procedure/Surgical History ???Cervical discectomy (2017)???History of cervical conization (1994)???Appendectomy (1989) Medications ibuprofen 400 mg oral tablet, 400 mg= 1 tab, Oral, every 4 hr, PRN levothyroxine, 75 mcg, Oral, Daily Tylenol Extra Strength 500 mg oral tablet, 1000 mg= 2 tab, Oral, every 6 hr, PRN Allergies methIMAzole??(Wheal) acetaminophen??(tachycardia) aspirin??(tachycardia) caffeine??(tachycardia) Social History Electronic Cigarette/Vaping Electronic Cigarette Use: Never. Exercise Tobacco Never tobacco user Tobacco Use:. Family History Cancer: Grandfather (M). Heart attack: Father, Grandfather (P) and Grandmother (M). High cholesterol: Mother, Father and Grandfather (P). Hypertension: Father and Grandfather (P). Family Member(s): ?? GPARENT, at age: 30 Years. Cause of : brain tumor Family Member(s): ?? GPARENT, at age: 98 Years. Cause of : Diagnostic Results Diagnostic Study Interpretation: Images from today are personally reviewed on the [facility] system to reveal a traumatic, angulated, comminuted fracture to the distal left fifth metacarpal without significant change from previous images. Electronically Signed on 02/14/23 03:15 PM Afia Benoit APRN Patient Care team information Care Team Personnel Name: INGRID WALLER,TONY, WHITNEY Oliver Position: No Access Member Role: Primary Care Physician Address: Address: [place] [address]- Care Team Related Persons Name: JAZMIN LOVE Address: Home [address], [place] [id number] [facility] Name: JAZMIN LOVE Address: Home [address], [place] [id number] [facility] Name: JESÚS LOVE Address: Home [address], [place] [phone] [facility]
--- OUTSIDE RECORDS SUMMARY | 2023-04-03 16:52 | XMS_ITS | Continuity of Care Document ---
Author Name Unknown Organization [facility] Ambulatory Clinics Address [address] [place] [address] Care Team Providers Care Order Processing Manager Name Role Phone INGRID WALLER DC, WHITNEY Oliver Primary Care Physician Encounter [facility] NBR [id number] Date(s): 02/12/23 - 02/12/23 [facility] Ambulatory Clinics [address] [place] [address] [place] Allergies, Adverse Reactions, Alerts Substance Reaction Severity Status acetaminophen tachycardia Unknown Active aspirin tachycardia Unknown Active caffeine tachycardia Unknown Active methIMAzole Wheal Moderate Active Assessment and Plan Future Appointments Medications ibuprofen 400 mg oral tablet 400 [...] cervical conization 1994 Completed Appendectomy 1989 Completed Social History Social History Type Response Tobacco Never tobacco user T obacco Use:. Sex Female Patient Care team information Care Team Personnel Name: INGRID WALLER DC, WHITNEY Oliver Position: No Access Member Role: Primary Care Physician Address: Address: [address] [address]- [place] Care Team Related Persons Name: JAZMIN LOVE Address: Home [address] [place], [place] [phone] [facility] Name: JESÚS LOVE Address: Home [address] [facility] [place] [id number] [facility]
== END 2023-04-03 16:51 | disposition home or self-care (01) ==
LOC: LBN 16:50
PROVIDERS: PCP Family Medicine; Visit Provider Family Medicine
DX: Z12.4 Encounter for screening for malignant neoplasm of cervix (principal); R87.618 Other abnormal cytological findings on specimens from cervix uteri; Z11.51 Encounter for screening for human papillomavirus (HPV); R87.810 Cervical high risk human papillomavirus (HPV) DNA test positive
CPT/HCPCS: 88142; 87624

== ENCOUNTER 2023-05-13 01:42 | Outpatient (CLI) | payer BC, SELFPAY ==
--- NOTE | 2023-05-13 12:25 | DI.MAMMO_ITS ---
Exam(s) MAMMO SCREENING EXAM: MAMMO SCREENING CLINICAL HISTORY: screening, Z12.39 TECHNIQUE: Bilateral full field digital CC and MLO mammographic images were obtained with 3D tomosyn thesis and utilizing computer aided detection (CAD). COMPARISON: Available for comparison. FINDINGS: Masses/Architectural Distortion: None seen. Microcalcifications: No suspicious pleomorphic-type are seen. Skin Thickening/Nipple Retraction: None. IMPRESSION: 1. No significant interval change with no specific features of malignancy noted. 2. Unless there is more urgent need, screening mammography is recommended, as per [employer] guidelines. BI-RADS Category 1 - Negative Breast Density - Category C - Heterogeneously dense Breast density category C or D implies that the patient has dense breast tissue. Dense breast tissue is very common and is not abnormal but dense breast tissue can make it harder to find cancer on a ma mmogram. Also, dense breast tissue may increase their breast cancer risk. This information about the result of the mammogram report was provided to the patient to raise their awareness. Use this report when you speak with the patient about their risks for breast cancer, which includes their family hist ory. At that time, you may recommend for more screening tests (Ultrasound or MRI) as they might be us eful based on their risk. A negative radiographic report should not delay biopsy if a dominant or clinically suspicious mass is present. Up to ten percent of cancers are not identified on mammography. A negative report may reinforce clinical impression. Adenosis and dense breasts may obscure an underlying neoplasm. False positive reports average 6 to 10%. Patient will receive a letter notifying them of these results.
== END 2023-05-13 02:02 ==
LOC: DI 01:42
PROVIDERS: PCP Family Medicine; Visit Provider Family Medicine
DX: Z12.31 Encounter for screening mammogram for malignant neoplasm of breast (principal)
CPT/HCPCS: 77063; 77067

== ENCOUNTER 2023-05-15 02:23 | Outpatient (CLI) | payer BC, SELFPAY ==
[2023-05-15 12:14] LABS: HCT 38.5 % (36.0-46.0); HGB 13.2 g/dL (11.2-15.7); MCH 31.7 pg (27.0-33.0); MCHC 34.3 % (32.0-36.0); MCV 93 fL (80-95); MPV 10.1 fL (8.0-11.0); Platelet Count 226 10^3/uL (130-400); RBC 4.16 10^6/uL (3.93-5.22); RDW 11.9 % (11.7-14.6); RDW-SD 40.7 fL; WBC 3.85 10^3/uL (4.4-10.8)
[2023-05-15 12:54] LABS: ALT 27 U/L (14-59); AST 18 U/L (15-37); Albumin 3.9 g/dL (3.4-5.0); Alkaline Phosphatase 75 U/L (46-116); Anion Gap 7.9 mmol/L (3-11); BUN 17 mg/dL (7-18); Bilirubin, Total 0.5 mg/dL (0.2-1.0); CO2 29.1 mmol/L (21.0-32.0); CREATININE 0.8 mg/dL (0.55-1.02); Calcium 9.3 mg/dL (8.5-10.1); Calculated LDL 106 mg/dL (<100); Chloride 106 mmol/L (98-107); Cholesterol 196 mg/dL (<200); Glucose 99 mg/dL (74-106); HDL Cholesterol 85 mg/dL (40-60); Potassium 3.9 mmol/L (3.5-5.1); Sodium 143 mmol/L (136-145); TSH (W/Ref FT4) 0.01 uIU/mL (0.36-3.74); Total Protein 7.3 g/dL (6.4-8.2); Triglyceride 28 mg/dL (<150)
[2023-05-15 13:39] LABS: FREE T4 1.26 ng/dL (0.76-1.46)
== END 2023-05-15 02:24 | disposition home or self-care (01) ==
LOC: LOS 02:23
PROVIDERS: PCP Family Medicine; Visit Provider Family Medicine
DX: Z00.00 Encounter for general adult medical examination without abnormal findings (principal); E03.9 Hypothyroidism, unspecified
CPT/HCPCS: 36415; 80053; 80061; 85027; 84439; 84443

== ENCOUNTER 2023-06-30 02:58 | Outpatient (CLI) | payer BC, SELFPAY ==
[2023-07-01 18:26] LABS: Thyroglobulin Antibody <1.8 IU/mL (<1.8); Thyroglobulin Tumor Marker 33 ng/mL
== END 2023-06-30 02:59 | disposition home or self-care (01) ==
PROVIDERS: PCP Family Medicine; Visit Provider Family Medicine
DX: E03.9 Hypothyroidism, unspecified (principal)
CPT/HCPCS: 36415; 84432; 86800

== ENCOUNTER 2024-01-23 03:13 | Outpatient (CLI) | payer BC, SELFPAY ==
[2024-01-23 17:15] LABS: TSH 11.94 uIU/Ml (0.36-3.74)
[2024-01-23 21:54] LABS: T3, Total 119 ng/dL (97-169)
== END 2024-01-23 03:14 | disposition home or self-care (01) ==
LOC: LBO 03:13
PROVIDERS: PCP Family Medicine; Visit Provider Student in an Organized Health Care Education/Training Program
DX: E05.00 Thyrotoxicosis with diffuse goiter without thyrotoxic crisis or storm (principal)
CPT/HCPCS: 36415; 84439; 84443; 84480

== ENCOUNTER 2024-04-02 01:48 | Outpatient (CLI) | payer BC, SELFPAY ==
[2024-04-02 15:35] LABS: FREE T4 0.91 ng/dL (0.76-1.46); TSH 0.98 uIU/Ml (0.36-3.74)
== END 2024-04-02 01:49 | disposition home or self-care (01) ==
LOC: LBO 01:49
PROVIDERS: PCP Family Medicine; Visit Provider Student in an Organized Health Care Education/Training Program
DX: E05.00 Thyrotoxicosis with diffuse goiter without thyrotoxic crisis or storm (principal); E89.0 Postprocedural hypothyroidism
CPT/HCPCS: 36415; 84439; 84443

== ENCOUNTER 2024-05-03 20:17 | Outpatient (REF) | payer BC, SELFPAY ==
--- NOTE | 2024-05-03 13:45 | PAPFT_PTH ---
PATIENT: Lisandra Duarte LOC: [facility] U#:[id number] AGE/SX: 63/F ROOM: RE05/03/[address]: Marta Mallory MD, DC : 1960 BED: DIS: 05/03/2024 SPEC #: [id number] RECD: 05/04/24 12:41 STATUS: LUCÍA REQ #: [id number] ANGELO: 05/03/24 13:[address]: Marta Mallory DEPT: [facility] Cytology RECD BY: Nishi Foote Tissues: 1 - CX/ENDOCX FOR PAP SMEARS Procedures: PAP THIN PREP/UVM Screening HPV DNA PROBE Comments: [id number]
== END 2024-05-03 20:18 | disposition home or self-care (01) ==
LOC: LBN 20:17
PROVIDERS: PCP Family Medicine; Visit Provider Family Medicine
DX: N76.0 Acute vaginitis (principal); Z11.51 Encounter for screening for human papillomavirus (HPV); Z01.419 Encounter for gynecological examination (general) (routine) without abnormal findings
CPT/HCPCS: 88142; 87480; 87510; 87624; 87660

== ENCOUNTER 2024-07-23 01:25 | Outpatient (CLI) | payer BC, SELFPAY ==
[2024-07-23 16:54] LABS: FREE T4 0.98 ng/dL (0.76-1.46); TSH 0.11 uIU/Ml (0.36-3.74)
== END 2024-07-23 01:26 | disposition home or self-care (01) ==
PROVIDERS: PCP Family Medicine; Visit Provider Student in an Organized Health Care Education/Training Program
DX: E05.00 Thyrotoxicosis with diffuse goiter without thyrotoxic crisis or storm (principal); E89.0 Postprocedural hypothyroidism
CPT/HCPCS: 36415; 84439; 84443

== ENCOUNTER 2024-11-22 03:19 | Outpatient (CLI) | payer BC, SELFPAY ==
[2024-11-22 14:19] LABS: FREE T4 0.79 ng/dL (0.76-1.46); TSH 2.88 uIU/mL (0.36-3.74)
[2024-11-23 19:42] LABS: T3, Total 146 ng/dL (97-169)
== END 2024-11-22 03:20 | disposition home or self-care (01) ==
PROVIDERS: PCP Family Medicine; Visit Provider Internal Medicine
DX: E89.0 Postprocedural hypothyroidism (principal); E05.00 Thyrotoxicosis with diffuse goiter without thyrotoxic crisis or storm
CPT/HCPCS: 36415; 84439; 84443; 84480

== ENCOUNTER 2024-12-21 11:01 | Outpatient (CLI) | payer BC, SELFPAY ==
--- NOTE | 2024-12-21 11:00 | RT.EKG_ITS ---
APPROVED REPORT Exam: Resting ECG Reason for Exam: Fatigue/irregular HR Patient Location: O HR:64 bpm ECG Measurements Heart Rate 64 AXIS SD 158 P 72 QRSd 99 QRS 28 QT 413 T 38 QTc 426 Conclusion Sinus rhythm...normal P axis, V-rate 50- 99 Normal Electrocardiogram
== END 2024-12-21 11:02 | disposition home or self-care (01) ==
PROVIDERS: PCP Family Medicine; Visit Provider Family Medicine
DX: R53.83 Other fatigue (principal); I49.9 Cardiac arrhythmia, unspecified
CPT/HCPCS: 93010

== ENCOUNTER 2024-12-21 11:03 | Outpatient (CLI) | payer BC, SELFPAY ==
[2024-12-21 12:23] LABS: HCT 39.8 % (36.0-46.0); HGB 13.6 g/dL (11.2-15.7); MCH 31.9 pg (27.0-33.0); MCHC 34.2 % (32.0-36.0); MCV 93 fL (80-95); MPV 10.2 fL (8.0-11.0); Platelet Count 240 10^3/uL (130-400); RBC 4.27 10^6/uL (3.93-5.22); RDW 12.4 % (11.7-14.6); RDW-SD 42.4 fL; WBC 6.38 10^3/uL (4.4-10.8)
[2024-12-21 12:30] LABS: Bilirubin Negative (Negative); Blood Trace-intact (Negative); Clarity Clear (Clear); Glucose Negative (Negative); Ketones Negative (Negative); Leukocyte Esterase Small (Negative); Mono Screening Negative (Negative); Nitrite Negative (Negative); Specific Gravity 1.015 (1.005-1.025); Urobilinogen 0.2 mg/dL (Up to 0.2)
[2024-12-21 12:43] LABS: Bacteria Negative HPF (Negative); C & S Indicated? No; Casts Negative LPF (Negative); Crystals Negative HPF (Negative); Epithelial Cells Rare HPF (Negative); Mucus Trace (Negative); RBC 0-2 HPF (0-2); WBC 0-2 HPF (0-5)
[2024-12-21 12:49] LABS: ALT 26 U/L (14-59); AST 20 U/L (15-37); Albumin 4.1 g/dL (3.4-5.0); Alkaline Phosphatase 75 U/L (46-116); Anion Gap 3.3 mmol/L (3-11); BUN 13 mg/dL (7-18); Bilirubin, Total 0.54 mg/dL (0.2-1.0); CO2 33.7 mmol/L (21.0-32.0); CREATININE 0.8 mg/dL (0.55-1.02); Calcium 9.3 mg/dL (8.5-10.1); Chloride 106 mmol/L (98-107); Estimated GFR 83.26 (mL/min/1.73m2); Ferritin 71 ng/mL (8-252); Glucose 94 mg/dL (74-106); Potassium 3.4 mmol/L (3.5-5.1); Sodium 143 mmol/L (136-145); TSH (W/Ref FT4) 3.43 uIU/mL (0.36-3.74); Total Protein 7.5 g/dL (6.4-8.2)
[2024-12-21 12:57] LABS: Hemoglobin A1C 5.3 % (<5.7)
[2024-12-21 13:18] LABS: Iron 97 ug/dL (50-170)
== END 2024-12-21 11:04 | disposition home or self-care (01) ==
LOC: LOS 11:03
PROVIDERS: PCP Family Medicine; Referring Provider Family Medicine; Visit Provider Family Medicine
DX: R53.83 Other fatigue (principal); I49.9 Cardiac arrhythmia, unspecified; I10 Essential (primary) hypertension; E03.9 Hypothyroidism, unspecified
CPT/HCPCS: 36415; 80053; 85027; 81003; 81015; 82728; 83036; 83540; 84443; 86308

== ENCOUNTER 2025-03-03 07:57 | Outpatient (CLI) | payer BC, SELFPAY ==
[2025-03-03 14:18] LABS: ALT 25 U/L (14-59); AST 22 U/L (15-37); Albumin 3.9 g/dL (3.4-5.0); Alkaline Phosphatase 75 U/L (46-116); Anion Gap 8.4 mmol/L (3-11); BUN 17 mg/dL (7-18); Bilirubin, Total 0.6 mg/dL (0.2-1.0); CO2 29.6 mmol/L (21.0-32.0); CREATININE 0.9 mg/dL (0.55-1.02); Calcium 8.9 mg/dL (8.5-10.1); Chloride 108 mmol/L (98-107); Estimated GFR 72.28 (mL/min/1.73m2); Glucose 92 mg/dL (74-106); Potassium 3.5 mmol/L (3.5-5.1); Sodium 146 mmol/L (136-145); Total Protein 7.1 g/dL (6.4-8.2)
== END 2025-03-03 07:58 | disposition home or self-care (01) ==
LOC: LOS 07:57
PROVIDERS: PCP Family Medicine; Referring Provider Family Medicine; Visit Provider Family Medicine
DX: I10 Essential (primary) hypertension (principal); E03.9 Hypothyroidism, unspecified; R53.83 Other fatigue
CPT/HCPCS: 36415; 80053

== ENCOUNTER 2025-03-30 02:05 | Outpatient (CLI) | payer BC, SELFPAY ==
[2025-03-30 17:25] LABS: FREE T4 0.87 ng/dL (0.76-1.46); TSH 0.41 uIU/mL (0.36-3.74)
[2025-03-31 18:30] LABS: T3, Total 151 ng/dL (97-169)
== END 2025-03-30 02:06 | disposition home or self-care (01) ==
PROVIDERS: PCP Family Medicine; Visit Provider Internal Medicine
DX: E89.0 Postprocedural hypothyroidism (principal)
CPT/HCPCS: 36415; 84439; 84443; 84480

== ENCOUNTER 2025-05-13 09:38 | Outpatient (REF) | payer BC, SELFPAY ==
--- NOTE | 2025-05-13 09:10 | ENDOMET_PTH ---
PATIENT: Lisandra Duarte LOC: [facility] U#:[id number] AGE/SX: 64/F ROOM: RE05/13/[address]: Katya Nam MD : 1960 BED: DIS: 05/13/2025 SPEC #: [id number] RECD: 05/13/25 12:58 STATUS: LUCÍA REQ #: [id number] ANGELO: 05/13/25 09:[address]: Katya Nam DEPT: Surgical Specimen RECD BY: Nishi Foote ENTERED: 05/13/25 12:59 SP TYPE: Endomet OTHR DR: Marta Mallory MD, DC Tissues: 1 - ENDOMETRIUM BX/CURRETTE Procedures: GROSS AND MICRO LEVEL 4 Comments:
--- NOTE | 2025-05-13 09:10 | PAPFT_PTH ---
PATIENT: Lisandra Duarte LOC: [facility] U#:[id number] AGE/SX: 64/F ROOM: RE05/13/[address]: Katya Nam MD : 1960 BED: DIS: 05/13/2025 SPEC #: [id number] RECD: 05/13/25 13:13 STATUS: LUCÍA REGerson #: [id number] ANGELO: 05/13/25 09:[address]: Katya Nam DEPT: [facility] Cytology RECD BY: Nishi Foote ENTERED: 05/13/25 13:13 SP TYPE: PAPFT OTHR DR: Marta Mallory MD, DC Tissues: 1 - CX/ENDOCX FOR PAP SMEARS Procedures: PAP THIN PREP/UVM Screening HPV DNA PROBE Comments: [id number] (HPV 16 & 18/45)
== END 2025-05-13 09:39 | disposition home or self-care (01) ==
LOC: LBN 09:38
PROVIDERS: PCP Family Medicine; Visit Provider Obstetrics & Gynecology
DX: Z12.4 Encounter for screening for malignant neoplasm of cervix (principal); D26.0 Other benign neoplasm of cervix uteri
CPT/HCPCS: 88142; 88305; 87624

== ENCOUNTER 2025-05-25 07:23 | Day surgery (SDC) | payer BC, SELFPAY ==
[2025-05-25 07:46] VITALS: BP 118/71; PULSE 67; RESP 16; TEMP 36.1; O2SAT 99
[2025-05-25] MEDS: Lactated Ringers 1,000 ML 125 ML IV (08:00)
--- NOTE | 2025-05-25 08:46 | W.ANESPRE ---
General Info Date of Service Date Performed: 05/25/25 Height: 5 ft 5.5 in Weight: 68.7 kg Body Mass Index (BMI): 24.8 Surgical Procedure: Operation Date: 05/25/25 08:55 Proposed Procedure Side Surgeon p Dilation & Curettage with Hysteroscopy Katya Nam MD Actual Procedure Side Surgeon p Dilation & Curettage with Hysteroscopy Not Applicable Katya Nam MD Pre-Op Diagnosis Post-Op Diagnosis THICKENED ENDOMETRIUM Meds Allergies and Home Medications Allergies Allergy/AdvReac Type Severity Reaction Status Date / Time methimazole Allergy Mild Hives Verified 05/25/25 07:42 Home Medication ?Medication ?Instructions ?Recorded levothyroxine 50 mcg tablet 25 mcg (1/2 x 50 mcg) PO DAILY #90 05/24/25 tabs milk thistle 150 mg capsule 150 mg PO DAILY 05/24/25 Current Visit Medications: Current Medications Generic Name Dose Route Start Last Admin Trade Name Freq PRN Reason Stop Dose Admin Ringer's Solution 1,000 mls @ 125 mls/hr 05/25/25 06:00 05/25/25 08:00 IV 05/25/25 23:59 125 mls/hr INFUSION JEFFERSON Administration IV Miscellaneous Supplies 1 each 05/25/25 06:00 Iv Access IV 05/25/25 23:59 DIRECTED JEFFERSON Sodium Chloride 0 ml 05/25/25 06:00 Normal Saline Flush 10 Ml Syr IV 05/25/25 23:59 PRN PRN Sodium Chloride 0 ml 05/25/25 06:00 Normal Saline 10 Ml Vial IJ 05/25/25 23:59 DIRECTED PRN Sterile Water 0 ml 05/25/25 06:00 Water,Injection,Sterile 10 Ml Vial IJ 05/25/25 23:59 DIRECTED PRN PFSH Active Problems Active Problems: Problem Status Onset Code Abdominal pain Acute R10.9 Thickened endometrium Acute R93.[address] of the abdomen Acute R93.5 Enlarged liver Acute R16.0 Arrhythmia Acute I49.9 RUQ abdominal pain Acute R10.11 Fatigue Acute R53.83 Fracture of hand Acute S62.90XA Thoracic back pain Acute M54.6 Hypothyroidism Chronic E03.9 Medical History Medical History COVID-19 Onset 08/19/22 Chest pain Neck pain Osteoarthritis Abnormal glandular Papanicolaou smear of vagina (10/23/94) conization; normal since DDD (degenerative disc disease), lumbar (11/28/15) Graves' disease (12/23/11) S/P thyroid ablation, now hypothyroid Hx of migraines (12/25/15) Neoplasm of unspecified nature of bone, soft tissue, 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 states she is hard to wake up Surgical History Surgical History History of colonoscopy History of hand surgery left, Boxers fracture History of conization of cervix History of endometrial ablation THYROID ABLATION Back Surgery (~12/2015) herniated disc Appendectomy Tobacco Smoking/Tobacco Use Status: Never Passive smoking exposure: No Second hand exposure: Yes Alcohol Alcohol Intake: never Substance Use Substance use: Never Substance use type: does not use Prental History History 3 Para 3 Hx # Term Pregnancies 3 Multiple births Hx # Pregnancies Ectopic pregnancies AB induced Hx Number of Living Children 3 AB spontaneous Past Pregnancies Del. Date GA/Weeks # Preg Succ Route Wgt Sex Labor Lgth Anesthesia Location Prov [facility] 05/04/84 40 No Yes vaginal 3486.991 g Male [facility] 05/14/86 40 No Yes vaginal 3345.244 g Female [facility] 04/18/90 No Yes vaginal 4167.38 g Male [place] Vital Signs and Lab Results Vital Signs Most Recent Vital Signs in EMR: Most Recent Vital Signs Temp Pulse Resp BP Pulse Ox 36.1 C L 67 16 118/71 99 05/25/25 07:46 05/25/25 07:46 05/25/25 07:46 05/25/25 07:46 05/25/25 07:46 Imaging and Studies Imaging and Studies Study information below may be from another EMR and interpreted by another provider. Please see original notes in EMR for more complete details. EKG Summary: EKG PATIENT NAME: Lisandra Duarte UNIT #: [id number] ORDERING PROVIDER: Marta Mallory M.D., DC PRIMARY CARE PROVIDER: MARTA MALLORY MD, DC DATE/TIME OF SERVICE: 12/21/24 1212 : 1960 PERFORMING LOCATION: [facility] APPROVED REPORT Exam: Resting ECG Reason for Exam: Fatigue/irregular HR Patient Location: HR:64 bpm ECG Measurements Heart Rate 64 AXIS OK 158 P 72 QRSd 99 QRS 28 QT 413 T38 QTc 426 Conclusion Sinus rhythm...normal P axis, V-rate 50- 99 Normal Electrocardiogram <Electronically signed by HARITHA PEDERSEN MD in OV> E-Sign Date: 12/21/24 E-Sign Time: 1214 Stress Test Summary: STRESS TEST PATIENT NAME: Lisandra Duarte UNIT #: [id number] ORDERING PROVIDER: Marta Mallory M.D., DC PRIMARY CARE PROVIDER: MARTA MALLORY MD, DC DATE/TIME OF SERVICE: 01/28/23 ADMITTING PROVIDER: SLAVA WALLER,HARITHA HERNANDEZ : 1960 APPROVED REPORT Exam: Exercise Treadmill Patient Location: Out-Patient Room/Bed: Stress Nurse: Calli Bliss RN Ordering Provider:MARTA MALLORY, Contact Number: [phone] BMI: 22.59 Baseline Rhythm: Sinus Rhythm Indications: Chest pain Medical History Medical History: Grave's disease, hypothyroidism, thyroid ablation, neck pain, DDD Cardiac Medications: Levothyroxine Allergies: Methimazole, caffeine Cardiac Risk Factors: Family hx Previous Cardiac Procedures: None Pretest Chest Pain Characteristics: Baseline chest pain midsternal 5/10 Exercise History: Physically active Physical Disabilities: None Lung Sounds: Clear to auscultation Heart Sounds: Regular Stress Test Details Test: Exercise stress testing was performed using a Minh protocol. Rest Stress HR Resting HR Supine: 71 bpmMax Heart Rate (APMHR): 160 bpm Resting HR Standin bpmTarget HR (85% APMHR): 136 bpm Max HR Achieved: 179 bpm % of APMHR: 112 Recovery HR: 97 bpm HR response to stress: Normal HR response to stress BP Resting BP Supine: 140/82 mmHg Resting BP Standin/74 mmHg Max BP: 198/90 mmHg Recovery BP: 128/70 mmHg BP response to stress: Normal blood pressure response to stress. ECG Resting ECG: Sinus Rhythm Ectopy: None Stress ECG: Sinus Tachycardia ST Change: No significant ST segment changes noted Arrhythmia: None Recovery ECG: Sinus Rhythm Recovery ST Change: No significant ST segment changes noted Recovery Arrhythmia: Rare PAC Clinical Reason for Termination: Fatigue Stress Symptoms: General Fatigue Exercise duration: 13 min03 sec Highest Stage Reached: Stage 5: 5.0 mph at 18% grade. Exercise capacity: 15 METs Angina Score: None Caldwell Treadmill Score: 11.5 Rate Pressure Product: [id number] Stress ECG Conclusion 1. The resting electrocardiogram was within normal limits 2. Patient exercised on the Minh protocol and completed a workload of 15 METS stopping due to fatigue 3. Normal heart rate and blood pressure response to exercise. The patient achieved greater than 100% of predicted heart rate for age 4. There was no electrocardiographic evidence of myocardial ischemia 5. There were no significant dysrhythmias Caldwell Treadmill Score is 11.5 which is Low risk. Stress Test Summary STAGETime (mins)Speed (mph)Grade (%)[id number] Ngexdn03625/82 Stexwolf56742/7499%Baseline chest pain midsternal 5/10 131.627694897/8296%4.5 262.687527634/8093%7 393.955953497/8496%10 4124.04524888%13 5155.05411073%15 1 min fubsuxbb499599/8097% 3 min hawlvaes757577/8099% 6 min hkcxbdks14312/7099% Patient reported baseline chest pain midsternal 5/10. Patient denied changes to this chest pain during stress test. Tolerated testing well. Dictated by: SLAVA WALLER,HARITHA HERNANDEZ Dictated:: 01/28/2348 <Electronically signed by Haritha Pedersen M.D. in OV> 01/28/2352 Transcribed Date: Transcribed Time: By: SHIRA This is privileged, confidential information, intended only for the provider named. Any use or distribution by any person other than this provider is strictly prohibited. If you receive this report in error, please notify us immediately at [phone] and return the original report to us at the address above. Thank you. Echocardiogram Summary: Patient Name: Lisandra Duarte Unit #: [id number] Loc: DI Ordering Provider: Marta Mallory M.D., DC Status: REG [facility] Primary Care Provider: Marta Mallory M.D., DC Date of Exam: 01/24/23 Sex: F Admission Date: 01/24/23 : 1960 Age: 62 APPROVED REPORT EXAM: Comprehensive 2D, Doppler, and color-flow Echocardiogram Patient Location: Out-Patient Block Hacker: An Mccloud RDCS (AE) Indications: Chest pain Other Information Study Quality: Adequate Conclusion Normal left-ventricular wall thickness and chamber size. Estimated ejection fraction is 55 to 60%. Wall motion is normal Normal right ventricular size and systolic function Both atria are normal in size There is no structural valvular disease Mild mitral regurgitation Normal estimated right ventricular systolic pressure 20 mmHg Wall motion Left Ventricle The left ventricle is normal size. The left ventricular systolic function is normal. The left ventricular ejection fraction is within the normal range. There is normal left ventricular wall thickness. There is normal LV segmental wall motion. There is no ventricular septal defect visualized. LVEF is 59%. Right Ventricle The right ventricle is normal size. The right ventricular systolic function is normal. The RVSP is 20.5 mmHg. Atria The left atrium size is normal. The right atrium size is normal. The interatrial septum is intact with no evidence for an atrial septal defect. Aortic Valve The aortic valve is normal in structure. There is no aortic valvular stenosis. No aortic regurgitation is present. Mitral Valve The mitral valve is normal in structure. No evidence of mitral valve stenosis. Mild mitral regurgitation. Tricuspid Valve The tricuspid valve is normal in structure. There is no tricuspid valve stenosis. Trace to mild tricuspid regurgitation. Pulmonic Valve The pulmonary valve is normal in structure. There is no pulmonic valvular stenosis. There is no pulmonic valvular regurgitation. Great Vessels The aortic root is normal in size. Ascending aorta is not well visualized. Aortic arch is normal in caliber. IVC is normal in size and collapses >50% with inspiration. Pericardium There is no pericardial effusion. 2D Dimensions IVSD d PLAX 0.86 cm F: 0.6-1.0LV Vol A2C d MOD 75.2 mL LVPW d PLAX 0.86 cm F: 0.6 - 1.0LV Vol A4C d MOD 97.6 mL LVID d PLAX 4.69 cm F: 3.8 - 5.2LA vol/ BSA A2C s A-L20.4 mL/m2 LVDs 3.25 cm F: 2.2 - 3.5LA vol/ BSA A4C s A-L29.0 mL/m2 Ao Root d 2.64 cm F: 2.7 - 3.3LA Vol/ BSA Biplane s A-L 25.3 mL/m2 RA Area A4C13.51 cm2LA Area A4C s MOD 17.30 cm2 RA Vol/ BSA A4C s A-L 19.9 mL/m2LA Area A2C s MOD 13.98 cm2 LV EF Teichholz 58.1 %LV EF A4C MOD 59.4 % LVEF (Lai's)56.12 % F: 54 - 74LV EF A2C MOD 58.7 % LV Cwzdky81.74 mL F: 46 - 106LV EF Biplane MOD 56.1 % LV Volume Index39.96 mL/m2 F: 29 - 61SV48.78 mL LV Vol Biplane MOD 86.9 mLSV Index28.38 mL/m2 FS30.60 % M-Mode TAPSE 2.66 cm (M/F) >1.7 LV Diastology MV E' medial0.152 (>0.07 m/s)E/A Ratio 0.8 LV E/e MED4.95 (<14)MV E Vmax 0.76 (0.4-1.3 m/s) MV E' lateral0.119 (>0.1 m/s)MV A Vmax 0.95 (0.4-1.3 m/s) LV E/e LAT6.35 (<14)MV E/A Ratio 0.79 MV E/E' medial 4.99 MV E/E' lateral6.38 Aortic Valve LVOT Area3.00 cm2AoV Area Vmax2.25 cm2 LVOT Vmax 1.21 m/sAoV Area/ BSA (Vmax)1.31 cm2/m2 LVOT Mean Zeke.0.76 m/sAVA Mean Zeke.2.13 cm2 LVOT Peak Grad 5.8 mmHgAVA Mean Zeke. Index1.24 cm2/m2 LVOT Mean Grad 2.8 mmHg LVOT VTI0.247 m LVOT Diam s 1.95 cm AoV Vmax1.61 m/s Velocity Ratio 0.75 AoV Mean Zeke.1.06 m/s AoV Peak Grad10.3 mmHg LVOT SV 74.04 mL AoV Mean Grad5.2 mmHg AoV VTI0.297 m AoV Area VTI2.49 cm2 AoV Area/ BSA (VTI)1.45 cm/m2 Mitral Valve MV DT 256 (160-240 msec) MV PHT74 msec MV Area PHT 2.97 cm2 MV VTI 0.278 m MV Area VTI 2.66 (4.0-6.0 cm2) Pulmonary Valve PV Vmax 0.98 (0.5-1.5 m/s)RVOT Peak Gr.2.86 mmHg PV Peak Grad 3.8 mmHgRVOT Mean Gr.1.40 mmHg PV Mean Grad 2.1 mmHgRVOT VTI0.182 m PV VTI 0.209 mRVOT Vmax 0.85 m/s Tricuspid Valve TR Peak Grad 17.4 mmHgTR Vmax 2.09 m/s RA Pressure 3.00 mmHg RVSP (TR) 20.5 mmHg Ordered By: Marta Mallory M.D., TONY CC: Dictated By: Haritha Pedersen M.D. 01/24/23 1503 <Electronically signed by Haritha Pedersen M.D. in OV> 01/24/23 1510 Transcribed By: Haritha Pedersen MD This is privileged, confidential information intended only for the provider named. Any use or distribution by any person other than this provider is strictly prohibited. If you receive this report in error, please notify us immediately at [phone] and return the original report to us at the address above. Thank-you. Anesthesia Assessment and Plan Anesthesia History Personal History: No History of Anesthesia Complications Family History: No Family History of Anesthesia Complications Exercise Tolerance Exercise Tolerance: Metabolic Equivalents>4 Pertinent Negatives Pertinent Negatives: No Symptoms of GERD, No Major Pulmonary Symptoms or Complaints and No History of CVA/TIA Cardiac & Pulmonary Exam Cardiac Exam: Normal S1/S2 Heart Sounds Pulmonary Exam: Clear Bilateral Breath Sounds Implantable Cardiac Device Does patient have a Pacemaker or an ICD?: No Airway Exam Known Difficult Airway: No Mallampati Class: 2 Mouth Opening: Normal (> 3cm) Thyromental Distance: Greater than 3 cm Neck Range of Motion: Full ROM Neck Circumference: Normal Teeth Condition: Normal Dentition Tooth Numbering:  1. Chip ASA Classification ASA Score: ASA 2 Emergency Case?: No NPO Status NPO Status: NPO Clears >2 hours, Solids >8 hours Anesthesia Plan Resuscitation Status: Full Code Anesthesia Technique: General Anesthesia Airway Planned: Natural Airway Monitors Used: Standard Monitors
[2025-05-25 08:48] VITALS: BMI 24.8
[2025-05-25 09:45] VITALS: BP 91/56; PULSE 60; RESP 16; TEMP 36.3; O2SAT 94
--- NOTE | 2025-05-25 10:07 | ROE_ITS ---
Operative Note Operative Note PRE-OP DIAGNOSIS: thickened endometrium, failed endometrial biopsy POST-OP DIAGNOSIS: same PROCEDURE: Exam under anesthesia, cervical dilation SURGEON: Katya Nam Refer to Anesthesia Record ESTIMATED BLOOD LOSS: 20 COMPLICATIONS: Other (uterine perforation) Patient was transported to: PACU Patient's condition: stable Indications: 64yo P3 with incidental finding of a thickened endometrium on CT scan for RUQ pain. The thickness is 12mm. She has a h/o cervical conization and endometrial ablation. Office endo bx was unsuccessful Findings: Scar tissue at the internal cervical os with inability to enter a definitive uterine cavity. Perforation through the posterior wall of the uterus without significant bleeding. Procedure Description: After informed consent was signed the patient was taken to the operating room and given GET anesthesia. SCDs were placed on her legs. She was prepped and draped in the dorsal lithotomy position in the [facility]. A time out was performed. Her bladder had been empty immediately prior to entering the OR. Exam under anesthesia revealed normal appearing external genitalia, normal vagin al and cervix. The uterus was small and midplane. A speculum was placed into the vaginal to expose the cervix. The anterior lip of the cervix was grasped with a single tooth tenaculum. A #2 mini cervical dilator was used to enter the cervix. The internal os was stenotic and with difficulty a tract was found but was very tight. Initially it seemed as though there was resistance from the uterine fundus. However, as the dilation proceeded with Linwood dilators up to size 5-6, the dilator inserted further then would be expected for her small uterus. Therefore, uterine perforation was presumed. One further attempt was made to identify a tract anterior to this perforation tract but it was unsuccessful. The procedure was aborted so as not to cause any harm. There was very minimal bleeding from the cervix at the end of the procedure. The tenaculum and speculum were removed with good hemostasis. The patient was placed back into the supine position. She was awwakened from anesthesia, moved to the stretcher and taken to the recovery room in stable condition. Date of Procedure: 05/25/25
[2025-05-25 10:14] VITALS: BP 94/64; PULSE 60; RESP 16; TEMP 36.2; O2SAT 96
--- NOTE | 2025-05-25 10:46 | W.ANESPOSTOP ---
Postoperative Evaluation Date, Time and Location Date Performed: 05/25/25 Time Performed: 10:46 Patient Location: Day Surgery Unit Vital Signs Most Recent Imported Vital Signs: Most Recent Vital Signs Temp Pulse Resp BP Pulse Ox 36.2 C L 60 16 94/64 L 96 05/25/25 10:14 05/25/25 10:14 05/25/25 10:14 05/25/25 10:14 05/25/25 10:14 Pain Score Most Recent Pain Score: Most Recent Pain Score Pain Level 6 05/25/25 10:14 Assessment Mental Status: Awake (Alert & Oriented to Patient Baseline) Airway and Respiratory Function: Patent airway with normal (patient baseline) respiratory exam Cardiovascular Function: Hemodynamically Stable Hydration Status: Adequately Hydrated Nausea & Vomiting: No Nausea or Vomiting Pain: Pain is tolerable per patient (Tolerable at this time) Peripheral Nerve Block: Patient did not receive a nerve block
[2025-05-25 11:27] VITALS: BP 95/54; PULSE 58; RESP 16; TEMP 36.3; O2SAT 99
== END 2025-05-25 11:55 | disposition home or self-care (01) ==
PROVIDERS: PCP Family Medicine; Visit Provider Obstetrics & Gynecology
PROC: 0UDB8ZZ Extraction of Endometrium, Via Natural or Artificial Opening Endoscopic (ICD-10-PCS; CPT 58558; principal; 2025-05-25 08:45)
DX: R93.89 Abnormal findings on diagnostic imaging of other specified body structures (principal); S37.69XA Other injury of uterus, initial encounter; X58.XXXA Exposure to other specified factors, initial encounter
CPT/HCPCS: 57800; J1885; J2405; J2704; J3010

== ENCOUNTER 2025-06-14 01:45 | Outpatient (CLI) | payer BC, SELFPAY ==
--- NOTE | 2025-06-14 07:45 | DI.MAMMO_ITS ---
Exam(s) MAMMO SCREENING EXAM: MAMMO SCREENING CLINICAL HISTORY: screening,Z12.31 TECHNIQUE: Mammograms were interpreted according to the usual protocol including computer analysis with CAD system, tomosynthesis and C-view imaging. COMPARISON: 2015 through 2022 FINDINGS: The breasts are composed of heterogeneously dense fibroglandular densities, Breast Density category C. No suspicious masses or suspicious microcalcifications are seen. No skin thickening or abnormal axillary lymph nodes are seen. There has been no significant change from prior exams. IMPRESSION: BI-RADS Category 1, Negative mammogram. Yearly screening mammography is recommended. Breast Density: Category C - The breasts are heterogeneously dense, which may obscure small masses. Breast density Category C or D implies that the patient has dense breast tissue. Dense breast tissue can make it harder to find cancer on a mammogram. Dense breast tissue is also associated with an increased risk of breast cancer. This information about the result of the mammogram report was provided to the patient to raise their awareness. Use this report when you speak with the patient about their risks for breast cancer, which includes their family history. At that time, you may recommend additional screening tests (Ultrasound or MRI) as these tests may add significant information. A negative radiographic report should not delay biopsy if a dominant or clinically suspicious mass is present. Up to ten percent of cancers are not identified on mammography. A negative report may reinforce clinical impression. Adenosis and dense breasts may obscure an underlying neoplasm. False positive reports average 6 to 10%.
== END 2025-06-14 02:05 ==
LOC: DI 01:45
PROVIDERS: PCP Family Medicine; Visit Provider Obstetrics & Gynecology
DX: Z12.31 Encounter for screening mammogram for malignant neoplasm of breast (principal); R92.333 Mammographic heterogeneous density, bilateral breasts
CPT/HCPCS: 77063; 77067

== ENCOUNTER 2025-06-15 02:35 | Outpatient (CLI) | payer BC, SELFPAY ==
[2025-06-15 15:43] LABS: C-Reactive Protein < 0.50 mg/dL (<or=0.5)
[2025-06-15 22:53] LABS: Total Protein 6.9 g/dL (6.3-8.2)
[2025-06-16 15:10] LABS: Albumin 63.5 % (55.8-66.1); Albumin g/dL 4.4 g/dL (3.6-5.2); Alpha 1 g/dL 0.30 g/dL (0.15-0.40); Alpha 2 g/dL 0.60 g/dL (0.50-1.00); Beta g/dL 0.90 g/dL (0.60-1.20); Gamma g/dL 0.80 g/dL (0.60-1.60)
== END 2025-06-15 02:36 | disposition home or self-care (01) ==
LOC: LBO 02:35
PROVIDERS: PCP Family Medicine; Visit Provider Family Medicine
DX: R10.9 Unspecified abdominal pain (principal); R16.0 Hepatomegaly, not elsewhere classified; R10.11 Right upper quadrant pain; R93.5 Abnormal findings on diagnostic imaging of other abdominal regions, including retroperitoneum
CPT/HCPCS: 36415; 82103; 82542; 82784; 83516; 87338; 83993; 84165; 86140

== ENCOUNTER 2025-06-15 18:25 | Outpatient (REF) | payer BC, SELFPAY ==
[2025-07-05 11:15] LABS: Helicobacter pylori Ag, Feces Negative (Negative)
== END 2025-06-15 18:26 | disposition home or self-care (01) ==
LOC: LBN 18:25
PROVIDERS: PCP Family Medicine; Visit Provider Family Medicine
DX: R10.11 Right upper quadrant pain (principal)
CPT/HCPCS: 87338; 83993